=== PATIENT | male | born 1960 | race Caucasian/White ===

== ENCOUNTER 2019-11-20 10:36 | Emergency (ER) | payer MEDICARE, OTHER, SELFPAY ==
[2019-11-20] VITALS (32 sets, daily range): BP systolic 101–136; BP diastolic 60–95; PULSE 68–91; RESP 14–25; TEMP 36.7; O2SAT 98–100
--- NOTE | ~2019-11-20 | XR_ITS ---
XR chest 2V DATE: 11/20/2019 11:32 INDICATION: Left-sided chest pain TECHNIQUE: PA and lateral views COMPARISON: 05/02/2019 2 view chest FINDINGS: Normal heart size. No hilar or mediastinal enlargement. The lungs are moderately hyperinfla michael but clear of infiltrate or consolidation. There is chronic blunting of the left costophrenic angl e. No pleural effusion or pulmonary vascular congestion or pneumothorax is detected. Surgical clips overlie the right upper quadrant, consistent with cholecystectomy. Degenerative changes of the thoracic spine. IMPRESSION: No active cardiopulmonary disease or significant change compared to 05/02/2019 Reviewed, dictated and finalized at location A.
--- NOTE | 2019-11-20 10:59 | ECG_ITS ---
Measurements Intervals [place] Rate: 75 P: 68 [place]: 147 QRS: 42 QRSD: 98 T: 58 QT: 358 QTc: 401 Interpretive Statements SINUS RHYTHM INCOMPLETE RIGHT BUNDLE BRANCH BLOCK BASELINE ARTIFACT- III, AVL, V1 BORDERLINE ECG Electronically Signed On 11-20-2019 11:24:54 CDT by Mikie Culp D.O.
[2019-11-20 11:13] LABS: Basophils Absolute Auto 0.1 K/mm3 (0.0-0.1); Basophils Percent Auto 0.7 % (0.2-1.2); Eosinophils Absolute Auto 0.2 K/mm3 (0-0.3); Eosinophils Percent Auto 2.2 % (0-4.4); Hematocrit 45.6 % (42.0-52.0); Hemoglobin 15.6 g/dL (14.0-18.0); Immature Granulocyte Absolute 0.07 K/mm3 (0.00-0.031); Immature Granulocyte Percent A 0.7 % (0-0.5); Lymphocytes Absolute Auto 1.65 K/mm3 (0.9-3.2); Lymphocytes Percent Auto 16.7 % (18.3-44.2); Mean Corpuscular HGB Conc 34.2 g/dl (32-36); Mean Corpuscular Hemoglobin 33.1 pg (26-34); Mean Corpuscular Volume 96.6 fl (80-100); Mean Platelet Volume 9.5 fl (7.4-10.4); Monocytes Absolute Auto 0.8 K/mm3 (0.1-0.6); Monocytes Percent Auto 7.6 % (2.6-8.5); Neutrophils Absolute Auto 7.1 K/mm3 (1.3-6.7); Neutrophils Percent Auto 72.1 % (45.5-73.1); Platelet Count Result 329 k/mm3 (150-375); Red Blood Count 4.72 M/mm3 (4.6-6.20); Red Cell Distribution Width 13.4 % (11.5-14.5); White Blood Count 9.9 K/mm3 (4.5-10.0)
[2019-11-20 11:23] LABS: INR 1.1; Prothrombin Time 14.2 Seconds (11.1-14.7)
--- NOTE | 2019-11-20 11:23 | ED.CHESTPAIN ---
HPI - Chest Pain General Chief Complaint: Chest Pain Stated Complaint: CHEST PAIN, SOB Time Seen by Provider: 11/20/19 11:08 Source: patient Mode of arrival: ambulatory Limitations: no limitations History of Present Illness HPI narrative: This is a 59 year old male that presents to the ER for left sided chest pain since this morning. Reports he has been having some intermittent left-sided burning chest pain over the last couple of weeks. Reports he was diagnosed with pleurisy and has finished antibiotics and a steroid taper for this. Reports this morning he had some sharp left-sided chest pain which prompted him to be seen. The pain has now resolved. Denies fever, cough, shortness of breath, abdominal pain or vomiting. Related Data Home Medications Medication Instructions Recorded Confirmed famotidine 20 mg tablet 40 mg PO BID tablet 04/29/19 04/29/19 ijvlwh-[id number]-[id number] 1 cap PO QID 04/29/19 04/29/19 12,000-38,000-60,000 unit capsule,delayed rel rizatriptan 10 mg tablet See Rx Instructions PO .COMPLEX 04/29/19 04/29/19 Allergies Allergy/AdvReac Type Severity Reaction Status Date / Time hydromorphone Allergy Unknown unknown Verified 07/28/19 12:18 ketamine Allergy Unknown Other Verified 07/28/19 12:18 latex Allergy Unknown unknown Verified 11/01/19 09:02 morphine Allergy Unknown unknown Verified 07/28/19 12:18 hydrocodone Allergy Unknown Verified 11/20/19 10:47 Review of Systems Review of Systems: Narrative: CONSTITUTIONAL: Denies fever CARDIOVASCULAR: Reports chest pain. Denies palpitations, or edema. RESPIRATORY: Denies cough or dyspnea. GASTROINTESTINAL: Denies abdominal pain, nausea, vomiting All systems reviewed & are unremarkable except as noted in HPI and below PMFSH Social History Social History Smoking status: Heavy tobacco smoker Second hand tobacco smoke exposure: Yes Alcohol intake: current Gender identity (if verbalized by the patient): Male Exam Narrative: Exam Narrative: GENERAL: Well-appearing, well-nourished, and in no acute distress. HEAD: Normocephalic, atraumatic. EYES: EOMI. NECK: Supple. No adenopathy or masses. No carotid bruits or JVD CHEST: Clear to auscultation. No respiratory distress. No wheezes rales or rhonchi HEART: Regular rate and rhythm. No murmur heard. Normal peripheral pulses. ABDOMEN: Soft, nontender, nondistended, normal active bowel sounds. EXTREMITIES: Normal range of motion. No edema. SKIN: Warm, dry, no rash. NEURO: No focal deficits. Alert and oriented x3. PSYCH: Normal mood and affect Course Vital Signs Vital signs: Vital Signs Pulse Rate 87 11/20/19 10:41 Respiratory Rate 22 H 11/20/19 10:41 Temperature 98.1 F 11/20/19 10:43 Pulse Rate 80 11/20/19 13:16 Respiratory Rate 16 11/20/19 13:16 Blood Pressure 121/68 11/20/19 14:46 Pulse Oximetry 100 11/20/19 14:46 MDM - Chest Pain MDM Narrative Medical decision making narrative: Patient presents to the emergency department for left-sided chest pain which occurred this morning. Patient is afebrile and nontoxic-appearing. CBC and metabolic panel are without acute changes. BNP is not elevated. D-dimer is not elevated. Baseline and 3-hour troponin are negative. No concerning changes on EKG. Chest x-ray is normal. Patient has remained chest pain-free while in the ED. Heart score is 2. Patient is stable and felt appropriate for further outpatient evaluation. He is to follow-up with his primary care doctor. He was given warnings to return to the ER Lab Data Attestation: I reviewed the patient's lab results. Result diagrams: 11/20/19 11:05 11/20/19 11:05 Labs: Lab Results 11/20/19 11/20/19 11/20/19 Range/Units 11:04 11:05 11:05 WBC 9.9 (4.5-10.0) K/mm3 RBC 4.72 (4.6-6.20) M/mm3 Hgb 15.6 (14.0-18.0) g/dL Hct 45.6 (42.0-52.0) % MCV 96.6 (80-100) fl [facility]
[2019-11-20 11:24] LABS: Partial Thromboplastin Time 26.5 SECONDS (22.3-36.8)
[2019-11-20 11:26] LABS: Blood Urea Nitrogen 12 mg/dL (9-20); Calcium 9.3 mg/dL (8.4-10.2); Carbon Dioxide 30 mmol/L (22-30); Chloride 101 mmol/L (98-107); Estimated CRCL calculation 70 ml/min; Estimated Glomerular Filt Rate > 60; Glucose 111 mg/dL (75-110); Potassium 3.5 mmol/L (3.4-5.0); Sodium 136 mmol/L (137-145)
[2019-11-20 11:38] LABS: Troponin I < 0.012 ng/mL (0.000-0.034)
[2019-11-20 11:44] LABS: D Dimer 0.32 ug/mL (<0.48)
[2019-11-20 11:47] LABS: NT Pro B Type Natriuretic Pept 34 PG/ML (5-100)
[2019-11-20 14:35] LABS: Troponin I < 0.012 ng/mL (0.000-0.034)
== END 2019-11-20 15:23 | disposition home or self-care (01) ==
PROVIDERS: Physician Assistant; Emergency Provider Emergency Medicine; PCP Family Medicine
DX: R07.9 Chest pain, unspecified (principal); F17.200 Nicotine dependence, unspecified, uncomplicated; I45.10 Unspecified right bundle-branch block
CPT/HCPCS: 36415; 71046; 80048; 83880; 84484; 85025; 85380; 85610; 85730; 93005; 99284

== ENCOUNTER 2020-01-09 09:07 | Outpatient (CLI) | payer MEDICARE, OTHER, SELFPAY ==
[2020-01-09 09:33] LABS: Hematocrit 44.7 % (42.0-52.0); Hemoglobin 15.5 g/dL (14.0-18.0); Mean Corpuscular HGB Conc 34.7 g/dl (32-36); Mean Corpuscular Volume 95.3 fl (80-100); Mean Platelet Volume 9.5 fl (7.4-10.4); Platelet Count Result 309 k/mm3 (150-375); Red Blood Count 4.69 M/mm3 (4.6-6.20); Red Cell Distribution Width 13.1 % (11.5-14.5); White Blood Count 7.1 K/mm3 (4.5-10.0)
[2020-01-09 09:41] LABS: Alanine Aminotransferase 17 U/L (4-50); Albumin Level 4.3 g/dL (3.5-5.1); Alkaline Phosphatase 86 U/L (38-126); Anion Gap 9.2 mmol/L (7-16); Aspartate Amino Transferase 22 U/L (17-59); Bilirubin,Total 0.5 mg/dL (0.2-1.3); Blood Urea Nitrogen 18 mg/dL (9-20); Calcium 9.3 mg/dL (8.4-10.2); Carbon Dioxide 28 mmol/L (22-30); Chloride 103 mmol/L (98-107); Cholesterol 194 mg/dL (0-200); Estimated Glomerular Filt Rate > 60; Glucose 102 mg/dL (75-110); HDL Direct 47 mg/dL; Potassium 4.2 mmol/L (3.4-5.0); Sodium 136 mmol/L (137-145); Triglycerides 70 mg/dL (<150)
[2020-01-09 09:51] LABS: LDL Cholesterol Direct 130 mg/dL
[2020-01-09 12:42] LABS: Prostate Specific Antigen 3.9 ng/mL (< OR = 4.0)
== END 2020-01-09 09:08 | disposition home or self-care (01) ==
LOC: ANHLAB 09:10
PROVIDERS: PCP Family Medicine; Visit Provider Family Medicine
DX: E78.2 Mixed hyperlipidemia (principal); R10.9 Unspecified abdominal pain; R53.83 Other fatigue; Z12.5 Encounter for screening for malignant neoplasm of prostate
CPT/HCPCS: 36415; 80053; 80061; 84153; 84443; 85027; G0103

== ENCOUNTER 2020-07-17 08:16 | Outpatient (CLI) | payer MEDICARE, OTHER, SELFPAY ==
[2020-07-17 08:53] LABS: Hematocrit 44.8 % (42.0-52.0); Hemoglobin 15.3 g/dL (14.0-18.0); Mean Corpuscular HGB Conc 34.2 g/dl (32-36); Mean Corpuscular Hemoglobin 32.7 pg (26-34); Mean Corpuscular Volume 95.7 fl (80-100); Mean Platelet Volume 9.4 fl (7.4-10.4); Platelet Count Result 363 k/mm3 (150-375); Red Blood Count 4.68 M/mm3 (4.6-6.20); Red Cell Distribution Width 13.4 % (11.5-14.5); White Blood Count 9.4 K/mm3 (4.5-10.0)
[2020-07-17 10:48] LABS: Vitamin D 25 Hydroxy 51.5 ng/mL
[2020-07-17 12:07] LABS: Alanine Aminotransferase 14 U/L (4-50); Albumin Level 3.9 g/dL (3.5-5.1); Alkaline Phosphatase 96 U/L (38-126); Anion Gap 5 mmol/L (8-16); Aspartate Amino Transferase 22 U/L (17-59); Bilirubin,Total 0.5 mg/dL (0.2-1.3); Blood Urea Nitrogen 16 mg/dL (9-20); Calcium 9.6 mg/dL (8.4-10.2); Carbon Dioxide 28 mmol/L (22-30); Chloride 106 mmol/L (98-107); Cholesterol 180 mg/dL (0-200); Estimated Glomerular Filt Rate > 60; Glucose 91 mg/dL (75-110); Lipase 57 U/L (23-300); Potassium 4.8 mmol/L (3.4-5.0); Sodium 139 mmol/L (137-145)
[2020-07-17 12:55] LABS: Iron 108 ug/dL (49-181)
[2020-07-17 12:58] LABS: Vitamin B12 > 1000.0 pg/mL (239-931)
[2020-07-17 13:04] LABS: Percent Iron Saturation 34 % (20-50)
== END 2020-07-17 08:17 | disposition home or self-care (01) ==
PROVIDERS: PCP Family Medicine; Visit Provider Family Medicine
DX: R53.83 Other fatigue (principal); E55.9 Vitamin D deficiency, unspecified; K25.9 Gastric ulcer, unspecified as acute or chronic, without hemorrhage or perforation; E78.2 Mixed hyperlipidemia; E53.9 Vitamin B deficiency, unspecified; G89.29 Other chronic pain; R10.9 Unspecified abdominal pain; K86.1 Other chronic pancreatitis
CPT/HCPCS: 36415; 80053; 82306; 82465; 82607; 83540; 83550; 83690; 84443; 85027

== ENCOUNTER → 2020-10-19 06:33 | Outpatient (CLI) | payer MEDICARE, OTHER, SELFPAY ==
[2020-10-19 18:42] LABS: SARS-CoV-2 RNA PCR Negative
== END ==
PROVIDERS: PCP Family Medicine; Visit Provider Physician Assistant
DX: Z20.822 Contact with and (suspected) exposure to COVID-19 (principal); R05 Cough
CPT/HCPCS: C9803; U0003; U0005

== ENCOUNTER 2021-02-06 07:11 | Outpatient (CLI) | payer MEDICARE, OTHER, SELFPAY ==
[2021-02-06 07:57] LABS: Hematocrit 44.7 % (42.0-52.0); Mean Corpuscular HGB Conc 33.6 g/dl (32-36); Mean Corpuscular Hemoglobin 32.5 pg (26-34); Mean Platelet Volume 9.3 fl (7.4-10.4); Platelet Count Result 351 k/mm3 (150-375); Red Blood Count 4.61 M/mm3 (4.6-6.20); Red Cell Distribution Width 13.4 % (11.5-14.5); White Blood Count 8.4 K/mm3 (4.5-10.0)
[2021-02-06 08:27] LABS: Alanine Aminotransferase 20 U/L (4-50); Albumin Level 4.3 g/dL (3.5-5.1); Alkaline Phosphatase 93 U/L (38-126); Anion Gap 3 mmol/L (8-16); Aspartate Amino Transferase 27 U/L (17-59); Bilirubin,Total 0.5 mg/dL (0.2-1.3); Blood Urea Nitrogen 16 mg/dL (9-20); Calcium 9.5 mg/dL (8.4-10.2); Carbon Dioxide 30 mmol/L (22-30); Chloride 106 mmol/L (98-107); Cholesterol 221 mg/dL (0-200); Estimated Glomerular Filt Rate > 60; Glucose 103 mg/dL (65-110); HDL Direct 49 mg/dL; Lipase 75 U/L (23-300); Sodium 139 mmol/L (137-145); Triglycerides 110 mg/dL (<150)
[2021-02-06 08:39] LABS: Potassium 4.3 mmol/L (3.4-5.0)
[2021-02-06 08:40] LABS: LDL Cholesterol Direct 125 mg/dL
[2021-02-06 08:47] LABS: Prostate Specific Antigen 2.4 ng/mL (< OR = 4.0)
== END 2021-02-06 07:12 | disposition home or self-care (01) ==
PROVIDERS: PCP Family Medicine; Visit Provider Family Medicine
DX: E78.2 Mixed hyperlipidemia (principal); R10.13 Epigastric pain; K86.1 Other chronic pancreatitis; Z12.5 Encounter for screening for malignant neoplasm of prostate; R53.83 Other fatigue; E53.9 Vitamin B deficiency, unspecified; E55.9 Vitamin D deficiency, unspecified
CPT/HCPCS: 36415; 80053; 80061; 82306; 82607; 83690; 84153; 84443; 85027; G0103

== ENCOUNTER 2021-02-19 14:24 | Outpatient (CLI) | payer MEDICARE, OTHER, SELFPAY ==
--- NOTE | 2021-02-19 14:34 | ECG_ITS ---
Measurements Intervals [place] Rate: 93 P: 70 [place]: 161 QRS: 48 QRSD: 99 T: 67 QT: 337 QTc: 419 Interpretive Statements SINUS RHYTHM INCOMPLETE RIGHT BUNDLE BRANCH BLOCK BORDERLINE ECG Electronically Signed On 02-19-2021 14:56:35 CDT by Mikie Culp D.O.
== END 2021-02-19 14:25 | disposition home or self-care (01) ==
PROVIDERS: PCP Family Medicine; Visit Provider Family Medicine
DX: Z01.810 Encounter for preprocedural cardiovascular examination (principal); E78.5 Hyperlipidemia, unspecified; I45.10 Unspecified right bundle-branch block
CPT/HCPCS: 93005

== ENCOUNTER 2021-10-21 07:33 | Outpatient (CLI) | payer MEDICARE, SELFPAY ==
[2021-10-21 07:56] LABS: Hematocrit 43.1 % (42.0-52.0); Hemoglobin 14.3 g/dL (14.0-18.0); Mean Corpuscular HGB Conc 33.2 g/dl (32-36); Mean Corpuscular Hemoglobin 32.7 pg (26-34); Mean Corpuscular Volume 98.6 fl (80-100); Mean Platelet Volume 9.3 fl (7.4-10.4); Platelet Count Result 337 k/mm3 (150-375); Red Blood Count 4.37 M/mm3 (4.6-6.20); Red Cell Distribution Width 14.2 % (11.5-14.5); White Blood Count 9.5 K/mm3 (4.5-10.0)
[2021-10-21 08:08] LABS: Alanine Aminotransferase 17 U/L (6-50); Albumin Level 4.1 g/dL (3.5-5.1); Alkaline Phosphatase 86 U/L (38-126); Anion Gap 4 mmol/L (8-16); Aspartate Amino Transferase 28 U/L (17-59); Bilirubin,Total 0.4 mg/dL (0.2-1.3); Blood Urea Nitrogen 14 mg/dL (9-20); Calcium 8.9 mg/dL (8.4-10.2); Carbon Dioxide 29 mmol/L (22-30); Chloride 105 mmol/L (98-107); Cholesterol 205 mg/dL (0-200); Estimated Glomerular Filt Rate > 60; Glucose 103 mg/dL (65-110); HDL Direct 46 mg/dL; Potassium 4.3 mmol/L (3.4-5.0); Sodium 138 mmol/L (137-145); Triglycerides 98 mg/dL (<150)
[2021-10-21 08:19] LABS: LDL Cholesterol Direct 119 mg/dL
[2021-10-21 09:01] LABS: Vitamin D 25 Hydroxy 71.4 ng/mL
== END 2021-10-21 07:34 | disposition home or self-care (01) ==
LOC: ANHLAB 07:38
PROVIDERS: PCP Family Medicine; Visit Provider Family Medicine
DX: E78.2 Mixed hyperlipidemia (principal); R53.83 Other fatigue; E53.9 Vitamin B deficiency, unspecified; E55.9 Vitamin D deficiency, unspecified
CPT/HCPCS: 36415; 80053; 80061; 82306; 82607; 84443; 85027

== ENCOUNTER 2022-04-11 07:19 | Outpatient (CLI) | payer MEDICARE, SELFPAY ==
[2022-04-11 07:58] LABS: Basophils Absolute Auto 0.1 K/mm3 (0.0-0.1); Basophils Percent Auto 1.4 % (0.2-1.2); Eosinophils Absolute Auto 0.4 K/mm3 (0-0.3); Eosinophils Percent Auto 5.7 % (0-4.4); Hematocrit 46.4 % (42.0-52.0); Hemoglobin 15.4 g/dL (14.0-18.0); Immature Granulocyte Absolute 0.03 K/mm3 (0.00-0.031); Immature Granulocyte Percent A 0.4 % (0-0.5); Lymphocytes Absolute Auto 1.88 K/mm3 (0.9-3.2); Lymphocytes Percent Auto 24.8 % (18.3-44.2); Mean Corpuscular HGB Conc 33.2 g/dl (32-36); Mean Corpuscular Hemoglobin 33.5 pg (26-34); Mean Corpuscular Volume 100.9 fl (80-100); Mean Platelet Volume 9.4 fl (7.4-10.4); Monocytes Absolute Auto 0.7 K/mm3 (0.1-0.6); Monocytes Percent Auto 9.1 % (2.6-8.5); Neutrophils Absolute Auto 4.5 K/mm3 (1.3-6.7); Neutrophils Percent Auto 58.6 % (45.5-73.1); Platelet Count Result 345 k/mm3 (150-375); Red Cell Distribution Width 13.2 % (11.5-14.5); White Blood Count 7.6 K/mm3 (4.5-10.0)
[2022-04-11 08:10] LABS: Alanine Aminotransferase 17 U/L (6-50); Albumin Level 4.6 g/dL (3.5-5.1); Alkaline Phosphatase 88 U/L (38-126); Anion Gap 7 mmol/L (8-16); Aspartate Amino Transferase 22 U/L (17-59); Bilirubin,Total 0.5 mg/dL (0.2-1.3); Blood Urea Nitrogen 18 mg/dL (9-20); Calcium 9.3 mg/dL (8.4-10.2); Carbon Dioxide 29 mmol/L (22-30); Chloride 104 mmol/L (98-107); Cholesterol 229 mg/dL (0-200); Estimated Glomerular Filt Rate > 60; Glucose 100 mg/dL (65-110); HDL Direct 47 mg/dL; Lipase 72 U/L (23-300); Potassium 4.4 mmol/L (3.4-5.0); Sodium 140 mmol/L (137-145); Triglycerides 141 mg/dL (<150)
[2022-04-11 08:21] LABS: LDL Cholesterol Direct 148 mg/dL
[2022-04-11 16:16] LABS: Vitamin D 25 Hydroxy 46.7 ng/mL
== END 2022-04-11 07:20 | disposition home or self-care (01) ==
LOC: ANHLAB 07:21
PROVIDERS: PCP Family Medicine; Visit Provider Family Medicine
DX: R10.13 Epigastric pain (principal); E78.2 Mixed hyperlipidemia; R53.83 Other fatigue; E55.9 Vitamin D deficiency, unspecified; E53.9 Vitamin B deficiency, unspecified
CPT/HCPCS: 36415; 80053; 80061; 82306; 82607; 83690; 84443; 85025

== ENCOUNTER 2022-09-04 07:05 | Outpatient (CLI) | payer MEDICARE, SELFPAY ==
[2022-09-04 07:35] LABS: Basophils Absolute Auto 0.2 K/mm3 (0.0-0.1); Basophils Percent Auto 1.3 % (0.2-1.2); Eosinophils Absolute Auto 0.7 K/mm3 (0-0.3); Eosinophils Percent Auto 6.4 % (0-4.4); Hematocrit 45.7 % (42.0-52.0); Hemoglobin 15.4 g/dL (14.0-18.0); Immature Granulocyte Absolute 0.05 K/mm3 (0.00-0.031); Immature Granulocyte Percent A 0.4 % (0-0.5); Lymphocytes Absolute Auto 1.98 K/mm3 (0.9-3.2); Lymphocytes Percent Auto 17.5 % (18.3-44.2); Mean Corpuscular HGB Conc 33.7 g/dl (32-36); Mean Corpuscular Hemoglobin 32.9 pg (26-34); Mean Corpuscular Volume 97.6 fl (80-100); Mean Platelet Volume 9.2 fl (7.4-10.4); Monocytes Percent Auto 8.8 % (2.6-8.5); Neutrophils Absolute Auto 7.4 K/mm3 (1.3-6.7); Neutrophils Percent Auto 65.6 % (45.5-73.1); Platelet Count Result 366 k/mm3 (150-375); Red Blood Count 4.68 M/mm3 (4.6-6.20); Red Cell Distribution Width 13.1 % (11.5-14.5); White Blood Count 11.3 K/mm3 (4.5-10.0)
[2022-09-04 07:50] LABS: Alanine Aminotransferase 14 U/L (6-50); Albumin Level 4.3 g/dL (3.5-5.1); Alkaline Phosphatase 97 U/L (38-126); Anion Gap 5 mmol/L (8-16); Aspartate Amino Transferase 19 U/L (17-59); Bilirubin,Total 0.5 mg/dL (0.2-1.3); Blood Urea Nitrogen 16 mg/dL (9-20); Calcium 9.1 mg/dL (8.4-10.2); Carbon Dioxide 31 mmol/L (22-30); Chloride 104 mmol/L (98-107); Cholesterol 224 mg/dL (0-200); Estimated Glomerular Filt Rate > 60; Glucose 104 mg/dL (65-110); HDL Direct 38 mg/dL; Potassium 4.1 mmol/L (3.4-5.0); Sodium 140 mmol/L (137-145); Triglycerides 177 mg/dL (<150)
[2022-09-04 07:56] LABS: Rheumatoid Factor < 8.6 IU/ML (<12)
[2022-09-04 08:01] LABS: LDL Cholesterol Direct 145 mg/dL
[2022-09-04 08:05] LABS: Vitamin D 25 Hydroxy 32.8 ng/mL
[2022-09-04 08:19] LABS: Erythrocyte Sedimentation Rate 14 mm/hr (0-20)
[2022-09-04 08:20] LABS: Prostate Specific Antigen < 0.1 ng/mL (< OR = 4.0)
[2022-09-04 08:55] LABS: Folic Acid 7.5 ng/mL (2.76->20)
[2022-09-08 12:07] LABS: Anti Cyclic Citrullinated Pept <16 Units (<20)
== END 2022-09-04 07:06 | disposition home or self-care (01) ==
PROVIDERS: PCP Family Medicine; Visit Provider Family Medicine
DX: M25.50 Pain in unspecified joint (principal); R53.83 Other fatigue; E78.5 Hyperlipidemia, unspecified; G89.29 Other chronic pain; D75.89 Other specified diseases of blood and blood-forming organs; E78.2 Mixed hyperlipidemia; E55.9 Vitamin D deficiency, unspecified; Z12.5 Encounter for screening for malignant neoplasm of prostate
CPT/HCPCS: 36415; 80053; 80061; 82306; 82607; 82746; 84153; 84443; 85025; 85652; 86038; 86200; 86430

== ENCOUNTER 2022-09-12 07:46 | Outpatient (CLI) | payer MEDICARE, SELFPAY ==
--- NOTE | ~2022-09-12 | MR_ITS ---
MRI of the brain Clinical History: Headache Technique: Axial and sagittal T1-weighted images were acquired. These were followed by axial T2-weigh michael, diffusion weighted, gradient, and FLAIR images. Thin cut coronal T1-weighted and T2-weighted, an d thin cut axial T1-weighted images were performed through the internal auditory canals. Following in travenous administration of 30 cc MultiHance gadolinium, T1-weighted fat-sat imaging was performed th rough the brain in the axial and coronal planes. Thin cut coronal and axial T1-weighted postcontrast imaging was also performed through the internal auditory canals. Findings: No acute infarct, internal hemorrhage, or mass lesion seen. There are mild chronic white ma tter changes in the periventricular white matter bilaterally and in the [place]. Ventricles and subarachnoid spaces are unremarkable. Orbits are unremarkable. Paranasal sinuses and m astoid air cells are clear. Major intracranial flow voids appear intact. Sagittal midline structures are intact. No abnormal mass lesion identified at the CP angle regions or internal auditory canals. No abnormal p ostcontrast enhancement identified. IMPRESSION: Mild chronic white matter changes, otherwise unremarkable exam. No abnormality of the internal auditory canals or CP angle regions identified. Reviewed, dictated and finalized at location M.
== END 2022-09-12 07:47 | disposition home or self-care (01) ==
LOC: ANHIMG 07:48
PROVIDERS: PCP Family Medicine; Visit Provider Family Medicine
DX: R51.9 Headache, unspecified (principal); R93.0 Abnormal findings on diagnostic imaging of skull and head, not elsewhere classified
CPT/HCPCS: 70553; A9577

== ENCOUNTER 2023-03-24 07:27 | Outpatient (CLI) | payer MEDICARE, SELFPAY ==
[2023-03-24 08:00] LABS: Basophils Absolute Auto 0.1 K/mm3 (0.0-0.1); Eosinophils Absolute Auto 0.4 K/mm3 (0-0.3); Hemoglobin 15.3 g/dL (14.0-18.0); Immature Granulocyte Absolute 0.04 K/mm3 (0.00-0.031); Immature Granulocyte Percent A 0.4 % (0-0.5); Lymphocytes Absolute Auto 2.24 K/mm3 (0.9-3.2); Mean Corpuscular Hemoglobin 33.4 pg (26-34); Mean Corpuscular Volume 98.3 fl (80-100); Mean Platelet Volume 9.5 fl (7.4-10.4); Monocytes Absolute Auto 0.9 K/mm3 (0.1-0.6); Monocytes Percent Auto 8.1 % (2.6-8.5); Neutrophils Percent Auto 65.5 % (45.5-73.1); Platelet Count Result 384 k/mm3 (150-375); Red Blood Count 4.58 M/mm3 (4.6-6.20); Red Cell Distribution Width 13.1 % (11.5-14.5); White Blood Count 10.7 K/mm3 (4.5-10.0)
[2023-03-24 08:13] LABS: Alanine Aminotransferase 19 U/L (6-50); Albumin Level 4.5 g/dL (3.5-5.1); Alkaline Phosphatase 99 U/L (38-126); Anion Gap 0 mmol/L (8-16); Aspartate Amino Transferase 25 U/L (17-59); Bilirubin,Total 0.6 mg/dL (0.2-1.3); Blood Urea Nitrogen 19 mg/dL (9-20); Calcium 9.6 mg/dL (8.4-10.2); Carbon Dioxide 33 mmol/L (22-30); Chloride 104 mmol/L (98-107); Cholesterol 227 mg/dL (0-200); Estimated Glomerular Filt Rate > 60; Glucose 101 mg/dL (65-110); HDL Direct 50 mg/dL; Potassium 4.7 mmol/L (3.4-5.0); Sodium 137 mmol/L (137-145); Triglycerides 114 mg/dL (<150)
[2023-03-24 08:21] LABS: LDL Cholesterol Direct 145 mg/dL
[2023-03-24 08:28] LABS: Iron 79 ug/dL (49-181)
[2023-03-24 08:38] LABS: Percent Iron Saturation 26 % (20-50)
[2023-03-24 08:41] LABS: Vitamin D 25 Hydroxy 25.1 ng/mL
[2023-03-24 09:00] LABS: Thyroid Stimulating Hormone Reflex 0.775 uIU/mL (0.465-4.68)
== END 2023-03-24 07:28 | disposition home or self-care (01) ==
LOC: ANHLAB 07:28
PROVIDERS: PCP Family Medicine; Visit Provider Family Medicine
DX: D72.829 Elevated white blood cell count, unspecified (principal); E55.9 Vitamin D deficiency, unspecified; R53.83 Other fatigue; R10.13 Epigastric pain; E53.8 Deficiency of other specified B group vitamins; E61.1 Iron deficiency; E78.2 Mixed hyperlipidemia
CPT/HCPCS: 36415; 80053; 80061; 82306; 82607; 83540; 83550; 84443; 85025

== ENCOUNTER 2023-04-22 09:52 | Outpatient (CLI) | payer MEDICARE, SELFPAY ==
--- NOTE | 2023-04-22 11:00 | NEURO_ITS ---
Impression: # Complains of right hand weakness. History of movement disorder with question regarding Huntingtonsdisease. 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 # No Carpal Tunnel Syndrome. # Needle/EMG exam mildly neurogenic in right 1st DI and ADM. Nerve Conduction Studies Anti Sensory Summary Table Stim Site NR Peak (ms) P-T Amp (?V) Site1 Site2 Delta-P (ms) Dist (cm) Octavio (m/s) Right Median Anti Sensory (2-3nd Digit) Wrist 3.5 57.6 Wrist 2-3nd Digit 3.5 14.0 40 Wrist 3.6 57.7 Wrist 2-3nd Digit 3.5 14.0 40 Right Radial Anti Sensory (Base 1st Digit) Wrist 2.1 21.8 Wrist Base 1st Digit 2.1 0.0 Right Ulnar Anti Sensory (5th Digit) Wrist 2.7 11.5 Wrist 5th Digit 2.7 14.0 52 Motor Summary Table Stim Site NR Onset (ms) O-P Amp (mV) Site1 Site2 Delta-0 (ms) Dist (cm) Octavio (m/s) Right Median Motor (Abd Poll Brev) Wrist 3.4 3.9 Elbow Wrist 4.8 29.0 60 Elbow 8.2 5.1 Right Ulnar Motor (Abd Dig Minimi) Wrist 3.0 6.6 A Elbow Wrist 6.5 29.0 45 A Elbow 9.5 4.6 B Elbow Wrist 3.3 20.0 61 B Elbow 6.3 6.0 F Wave Studies NR F-Lat (ms) L-R F-Lat (ms) Right Median (Mrkrs) (Abd Poll Brev) 27.59 Right Ulnar (Mrkrs) (Abd Dig Min) 29.25 EMG Side Muscle Nerve Root Ins Act Fibs Amp Dur Recrt Comment Right 1stDorInt Ulnar C8-T1 Nml Nml Nml >12ms Reduced Right Ext Indicis Radial (Post Int) C7-8 Nml Nml Nml Nml Nml Right Ext Digitorum Radial (Post Int) C7-8 Nml Nml Nml Nml Nml Right BrachioRad Radial C5-6 Nml Nml Nml Nml Nml Right PronatorTeres Median C6-7 Nml Nml Nml Nml Nml Right Abd Poll Brev Median C8-T1 Nml Nml Nml Nml Nml Right ABD Dig Min Ulnar C8-T1 Nml Nml Nml >12ms Reduced Right Biceps Musculocut C5-6 Nml Nml Nml Nml Nml Right Triceps Radial C6-7-8 Nml Nml Nml Nml Nml MTDD
== END 2023-04-22 09:53 | disposition home or self-care (01) ==
LOC: ANHNEURO 09:54
PROVIDERS: PCP Family Medicine; Visit Provider Family Medicine
DX: R20.2 Paresthesia of skin (principal); G56.21 Lesion of ulnar nerve, right upper limb
CPT/HCPCS: 95886; 95909

== ENCOUNTER 2023-06-25 07:24 | Outpatient (CLI) | payer MEDICARE, SELFPAY ==
[2023-06-25 07:43] LABS: Basophils Absolute Auto 0.1 K/mm3 (0.0-0.1); Basophils Percent Auto 0.9 % (0.2-1.2); Eosinophils Absolute Auto 0.5 K/mm3 (0-0.3); Eosinophils Percent Auto 5.9 % (0-4.4); Hematocrit 42.8 % (42.0-52.0); Hemoglobin 14.5 g/dL (14.0-18.0); Immature Granulocyte Absolute 0.03 K/mm3 (0.00-0.031); Immature Granulocyte Percent A 0.4 % (0-0.5); Lymphocytes Absolute Auto 2.57 K/mm3 (0.9-3.2); Lymphocytes Percent Auto 32.1 % (18.3-44.2); Mean Corpuscular HGB Conc 33.9 g/dl (32-36); Mean Corpuscular Hemoglobin 31.6 pg (26-34); Mean Corpuscular Volume 93.2 fl (80-100); Mean Platelet Volume 8.7 fl (7.4-10.4); Monocytes Absolute Auto 0.7 K/mm3 (0.1-0.6); Monocytes Percent Auto 8.1 % (2.6-8.5); Neutrophils Absolute Auto 4.2 K/mm3 (1.3-6.7); Neutrophils Percent Auto 52.6 % (45.5-73.1); Platelet Count Result 318 k/mm3 (150-375); Red Blood Count 4.59 M/mm3 (4.6-6.20)
[2023-06-25 08:08] LABS: Anion Gap 6 mmol/L (8-16); Blood Urea Nitrogen 15 mg/dL (9-20); Calcium 9.3 mg/dL (8.4-10.2); Carbon Dioxide 30 mmol/L (22-30); Chloride 104 mmol/L (98-107); Estimated Glomerular Filt Rate > 60; Glucose 97 mg/dL (65-110); Potassium 3.9 mmol/L (3.4-5.0); Sodium 140 mmol/L (137-145)
[2023-07-01 16:18] LABS: PRA 7.37 ng/mL/h (0.25-5.82)
== END 2023-06-25 07:25 | disposition home or self-care (01) ==
LOC: ANHLAB 07:28
PROVIDERS: PCP Family Medicine; Visit Provider Family Medicine
DX: I10 Essential (primary) hypertension (principal); D72.829 Elevated white blood cell count, unspecified
CPT/HCPCS: 36415; 80048; 82088; 82384; 84244; 85025

== ENCOUNTER 2023-07-10 10:48 | Outpatient (CLI) | payer MEDICARE, SELFPAY ==
--- NOTE | 2023-07-10 11:01 | ECG_ITS ---
Measurements Intervals [place] Rate: 93 P: 61 [place]: 165 QRS: 16 QRSD: 106 T: 64 QT: 349 QTc: 435 Interpretive Statements SINUS RHYTHM INCOMPLETE RIGHT BUNDLE BRANCH BLOCK BORDERLINE ECG COMPARED TO ECG 02/19/2021 14:41:00 NO SIGNIFICANT CHANGES Electronically Signed On 07-10-2023 11:59:45 B[employer]ER by Mikie Culp D.O.
== END 2023-07-10 10:49 | disposition home or self-care (01) ==
PROVIDERS: PCP Family Medicine; Visit Provider Student in an Organized Health Care Education/Training Program
DX: I10 Essential (primary) hypertension (principal); Z01.818 Encounter for other preprocedural examination; I45.10 Unspecified right bundle-branch block
CPT/HCPCS: 93005

== ENCOUNTER 2023-07-16 05:48 | Day surgery (SDC) | payer MEDICARE, SELFPAY ==
--- NOTE | 2023-07-15 10:42 | WPDANESEPPF ---
Anes - Initial Pre Proc Eval Procedure: Operation Date: 07/16/23 07:30 Proposed Procedures p Right Endoscopic Carpal Tunnel Release, Possible Open Carpal Tunnel Release - Ailyn Patrick MD s Right Middle Finger A1 Gilda Release - MD coni Duke Right Cubital Tunnel Release - Ailyn Patrick MD Date/Time: 07/15/23 10:42 Surgeon: Ailyn Patrick MD Pre Op Diagnosis: Right Carpal Tunnel Syndrome, Ulnar Neuropathy Patient Data Age: 63 Gender: M Height: 1.73 m Weight: 71.668 kg Allergies Allergy/AdvReac Type Severity Reaction Status Date / Time hydromorphone Allergy Unknown unknown Verified 07/16/23 06:24 ketamine Allergy Unknown Hallucinati Verified 07/16/23 06:24 ng morphine Allergy Unknown unknown Verified 07/16/23 06:24 adhesive tape Allergy Blister Verified 07/16/23 06:24 hydrocodone Allergy Unknown Verified 07/16/23 06:24 Home Medications Medication Instructions Recorded Confirmed Type clobetasol 0.05 % topical cream 1 applic topical DAILY #60 grams 04/29/19 07/16/23 Rx famotidine 20 mg tablet 40 mg PO BID 04/29/19 07/16/23 History nvsyhr-vnxwycrz-bitfcia 1 cap PO QID 04/29/19 07/16/23 History 12,000-38,000-60,000 unit capsule,delayed rel (Creon) omeprazole 10 mg capsule,delayed 10 mg PO BID 09/27/20 07/01/23 History release ergocalciferol (vitamin D2) 1,250 50,000 unit PO WEEKLY #12 caps 09/11/21 07/16/23 Rx mcg (50,000 unit) capsule rizatriptan 10 mg disintegrating See Rx Instructions PO .COMPLEX 08/18/22 07/16/23 Rx tablet #10 tabs meclizine 25 mg tablet 25 mg PO BID PRN dizziness #60 tabs 10/29/22 07/16/23 Rx amlodipine 10 mg tablet 10 mg PO DAILY 06/17/23 07/16/23 History nortriptyline 10 mg capsule 10 mg PO BID 06/17/23 07/16/23 History albuterol sulfate 0.63 mg/3 mL 0.63 mg (3 mL) inhalation Q4-6H 06/24/23 07/16/23 Rx solution for nebulization PRN shortness of breath or wheezing #75 mL hydrochlorothiazide 25 mg tablet 37.5 mg PO DAILY 07/06/23 07/16/23 History tizanidine 4 mg capsule 4 mg PO TID PRN muscle spasticity 07/14/23 07/16/23 Rx #60 caps tramadol 50 mg tablet 50 mg PO Q6H PRN pain #40 tabs 07/14/23 07/16/23 Rx Patient hx anesthesia problems: none Family hx anesthesia problems: none Results Review: All pre-operative results and documents have been reviewed as part of the pre-operative evaluation. [facility] Past Medical History Medical History (Updated 07/15/23 @ 10:42 by Cj Hi, ) Centrilobular emphysema Cervical radicular pain Chorea Chronic abdominal pain Chronic pancreatitis FH: CAD (coronary artery disease) Gastric ulcer, unspecified as acute or chronic, without hemorrhage or perforation History of COPD [place] disease Hyperlipidemia Lumbar radiculopathy Lumbar spondylosis Migraine without status migrainosus, not intractable Movement disorder Peripheral vascular disease Sleep apnea Tear of right biceps muscle surgical repair Mar 2020 Tobacco abuse Tremor Vitamin B deficiency, unspecified Vitamin D deficiency Surgical History Surgical History H/O elbow surgery H/O eye surgery History of carpal tunnel surgery History of gastric surgery Hx of appendectomy Hx of cholecystectomy Previous back surgery Family History Family History Mother Family history of hepatitis Family history of malignant neoplasm Grandparent Diabetes mellitus Social History Social History Smoking packs per day: 1 Smoking cigarettes per day: 20.0 Years smoked: 45 Smoking pack-years: 45.00 Smoking status: Current every day smoker Tobacco type: cigarettes Second hand tobacco smoke exposure: Yes Alcohol intake: current Alcohol use details: RARE Substance use: former Substance use type: does not use
[2023-07-16 06:32] VITALS: BP 139/84; PULSE 94; RESP 14; TEMP 37.3; O2SAT 99
[2023-07-16] MEDS: LACTATED RINGERS 1,000 ML 30 ML IV CONT (06:51)
--- NOTE | 2023-07-16 07:06 | WPDHPUPDATE1 ---
History and Physical Update Update Date/Time: 07/16/23 07:06 Patient seen and examined in pre-operative holding area. No interval change in medical history or symptoms. Patient recalls previous discussion of benefits and alternatives to procedure. Continues to desire to proceed with right endoscopic possible open carpal tunnel release, right cubital tunnel release and right middle finger a1 taylor release . Reviewed procedure, post-op expectations and risks including but not limited to bleeding, infection, injury to tendon/nerve/vessel, decreased hand function, stiffness, RSD, no change or worsening of symptoms. I discussed the possible use of assistants and their participation in the case. Patient stated understanding and signed the consent form wishing to proceed.
--- NOTE | 2023-07-16 07:07 | W.PM.PROC2 ---
Procedure Note - Detailed Date of Procedure 07/16/23 Pre-op Diagnosis Right Carpal Tunnel Syndrome, right cubital tunnel syndrome and right middle trigger finger Post-op Diagnosis Same Procedure Performed right endoscopic carpal tunnel right cubital tunnel releases and right middle finger a1 taylor release Surgeon Ailyn Patrick MD Friction Saw Operator Kanwal Hoskins PA-C Anesthesia MAC Description of Procedure INFORMED CONSENT:The patient was seen and examined and marked in the pre-op area.? The patient signed the consent form. PROCEDURE IN DETAIL: The patient taken back to OR on the stretcher in supine position. Time out performed with anesthesia, surgeon and staff agreeing on patient's name site and surgery to be performed SCDs were placed on the lower extremities and inflated A tourniquet was placed on {right} upper extremity and antibiotics given IV After anesthesia administered sedation I injected {10}cc 1%lido with epi and 0.5% marcaine plain at the operative site The?{right upper extremity}?was prepped and draped in sterile fashion the??{right upper extremity} was??exsanguinated with Esmarch bandage and tourniquet inflated to 250mmHg I made a transverse incision in the {right} volar distal wrist crease through skin and dermis with 15 blade scalpel.? Littler scissors spread down to antebrachial fascia. A small incision was made in antebrachial fascia allowing access to Carpal tunnel. I proceeded with sequential dilation staying in line with the ring finger and hugging the hook of the hamate.? I then used the synovial elevator to free any adhesions from the underside of the transverse carpal ligament. Next I was able to insert the Microaire endoscopic carpal tunnel device with direct visualization of the transverse fibers on the monitor and proceeded with complete segmental retrograde release of the ligament in its entirety.? I irrigated with normal saline and closed with 4-0 monocryl for dermis and subcuticular closure. I then made a longitudinal incision over the right middle finger a1 taylor through skin and dermis witha 15 blade scalpel. Littler scissors were used to spread down to the a1 taylor. I initially incised the a1 taylor with a 15 blade then used littler scissors to spread above and below proximally and distally aabove and below the taylor and then completed the transection. Ragnell retractors were used to withdraw the fds and fdp tendons for inspection. They were free of masses and synovitis and glidiing smoothly in the sheath. I irrigated with normal saline and closed with 4-0 chromic I next proceeded with making a longitudinal incision between two heads for flexor carpi ulnaris at end of {right} cubital tunnel with 15 blade scalpel.? Littler scissors were used to spread down to FCU fascia.? An incision was made in FCU fascia and ulnar nerve identified exiting cubital tunnel.? I proceeded with complete retrograde release of the cubital tunnel including 7cm proximal for the intermuscular septum.? The nerve appeared healthy with visible vaso nervorum.? There was no subluxation on full elbow range of motion. ? I irrigated with normal saline and closure with 4-0 monocryl for dermis and subcuticular. The incision was covered with xeroform for the trigger finger, Dermabond for the wrist and elbow then 4x4s, yue, and a posterior elbow and volar wwrist splint for patient safety, security and comfort and secured with helen bandages after the tourniquet was let down noting the hand was warm and well perfused.? Patient awaken from anesthesia and transferred to recovery in stable condition Complications - none EBL- 1cc Disposition - home in stable conditions Kanwal Hoskins PA-C was essential for postiioning, retraction, closure and dressing and splint placement [facility] Billing Surgery - Charge Forward: Surgery Billing ([id number] same for kanwal adding modifier except don't bill [id number])
[2023-07-16] MEDS: ceFAZolin SODIUM 2 GM/20 ML SW SYRINGE IV PUSH (07:25)
[2023-07-16] MEDS: LIDOCAINE HCL 1% LOCAL INJ 20 ML VIAL 5 ML INFILTRATE (07:33)
[2023-07-16] MEDS: BUPIVACAINE/EPINEPHRINE 0.5% 50 ML VIAL INFILTRATE (07:33)
[2023-07-16 08:05] VITALS: BP 103/70; PULSE 70; RESP 12; TEMP 36.8; O2SAT 100
[2023-07-16 08:20] VITALS: BP 125/80; PULSE 78; RESP 13; O2SAT 100
[2023-07-16 08:35] VITALS: BP 137/88; PULSE 84; RESP 18; O2SAT 98
--- NOTE | 2023-07-16 08:37 | SUR.PHASEI ---
PT AWAKE AND ALERT. TALKATIVE. DENIES PAIN.
[2023-07-16 08:42] VITALS: BP 134/82; PULSE 84; RESP 16; O2SAT 97
[2023-07-16 09:10] VITALS: BP 141/85; PULSE 82; RESP 18; O2SAT 98
--- NOTE | 2023-07-16 11:28 | WPDANESPN ---
Anes - Prog Note Post-Op Date/Time: 07/16/23 11:28 Cardiovascular status: normal Respiratory status: normal Airway patency: baseline Mental status: baseline Post-Op hydration status: normal Vital Signs: Last Vital Signs Temp 36.8 C 07/16/23 08:05 Pulse 82 07/16/23 09:10 Resp 18 07/16/23 09:10 BP 141/85 H 07/16/23 09:10 Pulse Ox 98 07/16/23 09:10 O2 Del Method Room Air 07/16/23 09:10 O2 Flow Rate 6 07/16/23 08:20 Pain Score (VAS): 0 I/O: Intake & Output 07/15/23 07/16/23 07/16/23 23:59 07:59 15:59 Intake Total 200 Balance 200 Post-procedural complaints: none Patient Feedback: Patient satisfied with anesthetic care. Other Findings: Patient vital signs back to baseline. Patient denies nausea and vomiting. Patient's pain under control. Patient OK for discharge.
== END 2023-07-16 09:35 | disposition home or self-care (01) ==
PROVIDERS: PCP Family Medicine; Visit Provider Plastic Surgery
PROC: 01N54ZZ Release Median Nerve, Percutaneous Endoscopic Approach (ICD-10-PCS; CPT 29848; principal; 2023-07-16 07:30)
PROC: (CPT 26055; 2023-07-16 07:30)
PROC: (CPT 29848; 2023-07-16 07:30)
DX: G56.01 Carpal tunnel syndrome, right upper limb (principal); G56.21 Lesion of ulnar nerve, right upper limb; M65.331 Trigger finger, right middle finger
CPT/HCPCS: 29848; 64718; 26055

== ENCOUNTER 2023-09-01 10:07 | Outpatient (CLI) | payer MEDICARE, SELFPAY ==
--- NOTE | ~2023-09-01 | XR_ITS ---
Right Hand Technique: PA, oblique, and lateral views were obtained. Clinical History: Third digit pain Findings: No acute fracture or dislocation is seen. Osseous alignment is anatomic. Joint spaces are p reserved. Soft tissues are unremarkable. Impression: Unremarkable right hand. Reviewed, dictated and finalized at location . Impression: Unremarkable right hand.
== END 2023-09-01 10:08 | disposition home or self-care (01) ==
PROVIDERS: PCP Family Medicine; Visit Provider Physician Assistant Surgical
DX: M79.644 Pain in right finger(s) (principal)
CPT/HCPCS: 73130

== ENCOUNTER 2024-01-09 07:23 | Outpatient (CLI) | payer MEDICARE, SELFPAY ==
--- NOTE | ~2024-01-09 | MR_ITS ---
EXAMINATION: MR cervical spine wo con DATE: 01/09/2024 08:16 INDICATION: Right hand and arm numbness. Lesion of ulnar nerve, unspecified upper limb. TECHNIQUE: Magnetic resonance imaging (MRI) of the cervical spine was performed without intravenous c ontrast. COMPARISON: Cervical spine MRI 11/14/2015 FINDINGS: There is 4 degrees levocurvature of cervical spine. Vertebral body heights are normal. Inte rvertebral disc heights are normal. The spinal cord signal intensity is normal The following disc lev els are specifically discussed: C2-C3: The disc does not extend beyond the endplate margin. There is no uncovertebral joint osteoarth ritis. There is mild left facet joint osteoarthritis. There is ankylosis of right facet joint with mi ld hypertrophy. There is mild right neural foraminal stenosis. There is no central canal stenosis. C3-C4: There is a central protrusion. There is mild bilateral uncovertebral joint osteoarthritis. The re is moderate bilateral facet joint osteoarthritis. There is moderate right and mild left neural for aminal stenosis. There is no central canal stenosis. C4-C5: The disc does not extend beyond the endplate margin. There is mild bilateral uncovertebral paula nt osteoarthritis. There is moderate right and severe left facet joint osteoarthritis. There is mild left neural foraminal stenosis. There is no central canal stenosis. C5-C6: The disc does not extend beyond the endplate margin. There is mild bilateral uncovertebral paula nt osteoarthritis. There is severe right and moderate left facet joint osteoarthritis. There is mild right neural foraminal stenosis. There is no central canal stenosis. C6-C7: The disc is bulging. There is moderate bilateral uncovertebral joint osteoarthritis. There is severe right and moderate left facet joint osteoarthritis. There is moderate right and mild left neur al foraminal stenosis. There is mild central canal stenosis. C7-T1: The disc does not extend beyond the endplate margin. There is no uncovertebral joint osteoarth ritis. There is moderate bilateral facet joint osteoarthritis. There is mild bilateral neural foramin al stenosis. There is no central canal stenosis. IMPRESSION: 1. Moderate cervical spondylosis, worsened from 11/14/15. Reviewed, dictated and finalized at location A.
== END 2024-01-09 07:24 | disposition home or self-care (01) ==
PROVIDERS: PCP Family Medicine; Visit Provider Student in an Organized Health Care Education/Training Program
DX: M47.22 Other spondylosis with radiculopathy, cervical region (principal)
CPT/HCPCS: 72141

== ENCOUNTER 2024-04-11 06:34 | Outpatient (CLI) | payer MEDICARE, SELFPAY ==
--- NOTE | ~2024-04-11 | CT_ITS ---
CT of the Abdomen and Pelvis: Indication: Abdominal pain Technique: 2.5 mm axial scans were obtained through the abdomen and pelvis following intravenous adm inistration of 100 cc of Omnipaque 350. Dose reduction technique was used on this scan by utilizing a utomated exposure control and iterative reconstruction technique. The dose-length product (DLP) was 3 30.90 mGy-cm. Findings: Scans through the lung bases-a probable chronic scarring or atelectasis the right lung bas e with right basilar calcified granuloma.. The liver, spleen, pancreas, adrenals and kidneys are within normal limits. Cholecystectomy clips are present. There are atherosclerotic calcifications of the aorta. No lymphadenopathy. No bowel obstruction or bowel wall thickening. There is no evidence to suggest acute appendicitis. Images through the pelvis were performed. Urinary bladder unremarkable. No pelvic mass seen. No ascit es. Small bilateral fat-containing inguinal hernias are present. Impression: Small bilateral fat-containing inguinal hernias. Right basilar chronic scarring or atelectasis. Reviewed, dictated and finalized at [facility]. Impression: Small bilateral fat-containing inguinal hernias. Right basilar chronic scarring or atelectasis.
[2024-04-11 07:10] LABS: Estimated Glomerular Filt Rate > 60
== END 2024-04-11 06:35 | disposition home or self-care (01) ==
PROVIDERS: PCP Family Medicine; Visit Provider Family Medicine
DX: R10.13 Epigastric pain (principal); R10.31 Right lower quadrant pain; K40.20 Bilateral inguinal hernia, without obstruction or gangrene, not specified as recurrent
CPT/HCPCS: 74177; Q9967

== ENCOUNTER 2025-02-09 14:14 | Outpatient (CLI) | payer MEDICARE, SELFPAY ==
--- OUTSIDE RECORDS SUMMARY | 2025-02-08 12:40 | XMS_ITS | Encounter Summary ---
Author Organization [facility] Address [address] [facility] [address] [place] [address] Phone Care Team Providers Care Air Twister Winder Name Role Phone Diane Castillo MD Primary Care Provider [phone] Encounter Details Date Type Department Care Team (Late st Contact Info) Description 02/08/2025 12:40 PM CDT Office Visit [facility] ([facility]) [facility] [address] [facility] 11th [place] [address] [place] [address] Manoj Darling IV, MD [address] [facility] [place] [address] Social History Tobacco Use Types Packs/Day Years Used Date Smoking Tobacco: Every Day Cigarettes 0.8 47.7 Started: 1975 Smokeless Tobacco: Never Alcohol Use Standard Drinks/Week Comments No 0 (1 standard drink = 0.6 oz pur e alcohol) AUDIT-C Answer Date Recorded Q1: How often do you have a drink containing alc ohol? Never 05/11/2024 Average Number of Drinks Not on file 024 Frequency of Binge Drinking Not on file 04/16 Hunger Vital Sign Answer Date Recorded Within the past 12 months, y ou worried that your food would run out before you got the money to buy more. Never true 05/11/20 24 Within the past 12 months, t he food you bought just didn't last and you didn't have money to get more. Never true 05/11/2024 Personal Safety Answer Date Recorded Have you ever been in or are you currently in a harmful physical or emotional relationship or is someone making you feel afraid or unsafe? 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) Not on file Not on file Not on file documented as of this encounter Plan of Treatment Upcoming Encounters Date Type Department Care Team (Late st Contact Info) Description 03/17/2025 7:30 AM CDT Hospital Encounter [facility] [address] [place] [phone] Peter Gurrola MD [address] [address] 03/17/2025 7:30 AM CDT - 03/17/2025 8:30 AM CDT Surgery [facility] [address] [place] [phone] Peter Gurrola MD [address] [address] EGD Scheduled Procedures Name Priority Associated Diagnoses Date/Ti me ESOPHAGOGASTRODUODENOSCOPY Generalized postprandial abdominal pain Other constipation Weight loss Marginal ulcer Tubular adenoma 03/17/2025 7:30 AM CDT COLONOSCOPY Generalized postprandial abdominal pain Other constipation Weight loss Marginal ulcer Tubular adenoma 03/17/2025 7:30 AM CDT documented as of this encounter Visit Diagnoses Not on filedocumented in this encounter Care Teams Air Twister Winder Relationship Specialty Start Date End Date Diane Castillo MD PCP - General 07/31/15 documented as of this encounter
--- NOTE | ~2025-02-09 | US_ITS ---
US scrotum doppler INDICATION: Right testicular swelling TECHNIQUE: Testicular sonogram utilizing grayscale and color Doppler FINDINGS: The testes are normal in size and appearance. No focal lesions are seen. The right testes measures 4.2 x 2.2 x 3.1 cm centimeters, and the left testis measures 4.1 x 2.2 x 2.4 cm cm. There is normal vascular flow to both testes. There are bilateral epididymal cysts, largest on the left measuring 1.7 cm. There are bilateral hydroceles. No varicocele. IMPRESSION: 1. Bilateral epididymal cysts. 2: Small bilateral hydroceles. Reviewed, dictated and finalized at location O.
--- OUTSIDE RECORDS SUMMARY | 2025-02-09 14:21 | XMS_ITS | Clinical Summary ---
Author Organization [facility] Address [address] [place] [address] Care Team Providers Care Vamper Name Role Phone Diane Castillo MD Primary Care Provider Social History Tobacco Use Types Packs/Day Years Used Date Smoking Tobacco: Never Assessed Sex and Gender Information Value Date Recorded Sex Assigned at Not on file Legal Sex Male 8:17 PM CDT Gender Identity Not on file Sexual Orientation Not on file Plan of Treatment Health Maintenance Due Date Last Done Comments Colorectal Cancer Screening Colonoscopy (10 Years) 1962 Annual Physical 1965 Hepatitis C 02/16/1980 DTaP, Tdap and Td Vaccines ( 1 - Tdap) 1981 Pneumococcal Vaccine: 50+ Ye ars (1 of 1 - PCV) 02/16/2012 Zoster Vaccines (1 of 2) 02/16/2012 COVID-19 Vaccine ( - 2023-2 5 season) 2024 RSV Immunization or 60+ Years (1 - 1-dose 75+ series) 2037 Meningococcal B Vaccine Aged Out No l onger eligible based on patient's age to complete this topic Meningococcal Vaccine Aged Out No georgina scott eligible based on patient's age to complete this topic RSV Immunizations Under 20 Months Aged Out No longer eligible based on patient's age to complete this topic Care Teams Vamper Relationship Specialty Start Date End Date Diane Castillo MD PCP - General 06/20/13
--- OUTSIDE RECORDS SUMMARY | 2025-02-09 14:21 | XMS_ITS | Clinical Summary ---
Author Organization [facility] Address [address] [place] [address] Care Team Providers Care Crm Manager Name Role Phone Unavailable Primary Care Provider Unavailabl e Source Comments [facility],non-owned Affiliates and Associated Physician Practices is amultiple site organization consisting of ambulatory clinics and hospital sitesin [place], [place], [place] and [place]. This disclosure is being madepursuant to the Care Everywhere program and may not contain all information available regarding this patient. 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 Gender Identity Not on file Sexual Orientation Not on file Last Filed Vital Signs Vital Sign Reading Time Taken Comments Blood Pressure 111/74 05/03/2014 9:54 AM REAL ESTATE TEACHER Pulse 79 05/03/2014 9:54 AM REAL ESTATE TEACHER Temperature - - Respiratory Rate 16 05/03/2014 9:54 AM REAL ESTATE TEACHER Oxygen Saturation - - Inhaled Oxygen Concentration - - Weight 70.8 kg (156 lb) 05/03/2014 9:54 AM REAL ESTATE TEACHER Height 172.7 cm (5' 8) 05/03/2014 9:54 AM REAL ESTATE TEACHER Body Mass Index 23.72 05/03/2014 9:54 AM REAL ESTATE TEACHER Plan of Treatment Health Maintenance Due Date Last Done Comments COLOGUARD (AGES 45-75) - COL ON CA SCREENING 1962 COLON MONITORING 1962 COLONOSCOPY - COLON CA SCREENING 1962 CT COLONOGRAPHY - COLON CA SCREENING 1962 Colorectal Cancer Screening 1962 FIT - COLON CA SCREENING 1962 FLEX SIG - COLON CA SCREENING 1962 LIPID TESTING 1962 HIV SCREENING 1977 HEPATITIS C SCREENING 02/11/1980 DTAP/TDAP/TD VACCINES (1 - Tdap) 1981 PNEUMOCOCCAL VACCINE 50+ (1 of 1 - PCV) 02/16/2012 ZOSTER VACCINE (1 of 2) 02/16/2012 COVID-19 VACCINE (1 - 2023-2 5 season) 2024 DEPRESSION SCREENING 06/15/2024 INFLUENZA VACCINE (#1) 2025 Respiratory Syncytial Virus (RSV) Vaccine Pt: or over 60 yrs (1 - 1-dose 75+ series) 2037 HEPATITIS B VACCINE Aged Out No longe r eligible based on patient's age to complete this topic HIB VACCINE Aged Out No longer eligi ble based on patient's age to complete this topic HPV VACCINE Aged Out No longer eligi ble based on patient's age to complete this topic MENINGOCOCCAL (Group B) VACC INE SHARED DECISION-MAKING Aged Out No longer eligibl e based on patient's age to complete this topic MENINGOCOCCAL GROUPS A/C/Y/W VACCINE Aged Out No longer eligible b ased on patient's age to complete this topic Insurance MEDICARE [facility]
--- OUTSIDE RECORDS SUMMARY | 2025-02-09 14:21 | XMS_ITS | Patient Health Record ---
Author Organization [facility] Address [address] [place] [address] Support Name Relationship Address Phone Maximiliano Shad Guarantor Unknown [phone] Reason For Referral No Information Plan Of Treatment No Information Insurance Providers Payer Name Payer Address Payer Phone Subscriber Number Group Number Insured Name Patient Relationship to Insured Coverage Start Date Coverage End Date [place] [address] [place], [place] [id number] Shad Viera Self - patient is the insured [facility] [address] [place], [place] [id number] Penny Viera Self - patient is the insured [place] Medicare [address] [address] [place], [place] [id number] Viera Shad Self - patient is the insured Medical (General) History Surgical History Surgery Date(Month/Year) Cholecystectomy:2004 Appendectomy Ercp duct stent placement ([id number]):ERCP 12/10/[address] 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 Morphologic changes of the pancreatic duct of unclear clinical significance. Dual-duct protective stenting was perfo 12/10/2014 Ercp duct stent placement ([id number]) 2014 Egd/endoscopy:Ahmed Gastritis. Path-- duodenal bx neg. Mild reactive gastropathy, neg for H. pylori. 03/05/2017
--- OUTSIDE RECORDS SUMMARY | 2025-02-09 14:21 | XMS_ITS ---
Author Organization [facility] Address [address] [place] [address] Care Team Providers Care Sas Developer Analyst Name Role Phone Diane Castillo MD Primary Care Provider [phone] Active Problems Problem Noted Date Diagnosed Date Tubular adenoma 09/08/2024 Generalized postprandial abdominal pain 07/22/19 22 Overview (07/22/2021): Added automatically from request for surgery [id number] Gastric ulcer 07/22/2021 Overview (07/22/2021): Added automatically from request for surgery [id number] Prostate cancer 05/14/2021 Overview (05/14/2021): Added automatically from request for surgery [id number] Elevated PSA 04/08/2021 Overview (04/08/2021): Added automatically from request for surgery [id number] Lower urinary tract symptoms (LUTS) 09/11/2020 Kidney cysts 09/11/2020 Other constipation 07/24/2020 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 man with chorea for 7 years that began in 2013 after recovering from hospitalization with laparotomy, treatment with promethazine for nausea, but also severe illness requiring ICU care. - Genetic testing for HD 01/16/20: Intermediate (30, 17) - Motor symptoms: chorea has progressed. He did not tolerate TBZ due to nausea: unclear whether this was a side effect or a coincidental symptom. The motor UHDRS score today was 23 in Jan 2021, 15 in Dec 2018, with contributions mainly from chorea. The motor UPDRS score today was 12 in Jan 2021, 5 in Dec 2018. Given that the chorea is further interfering with sleep (takes 2+ naps a day) and may be triggering some of his falls (6 in a year), I will start a neuroleptic in an attempt to reduce chorea. Later he can transition to TBZ if this is appropriate. Will start risperidone. - Dx: today he said that, during his hospitalization for laparotomy in 2013, he spent time in the ICU and was sufficiently ill that, as he put it, his girlfriend was asked to sign the papers to unplug me. Unclear whether he referred to DNR order vs. support withdrawal. The movements started at some point after this hospitalization. Genetic testing for HD (16 Jan 2020) yielded intermediate expansion, 30 repeats. I doubt the dx is HD due to 30 being such a small number of repeats in the intermediate range, and the dominance of chorea over any other symptom in the UHDRS, i.e. motor incoordination is minimal. His cognitive and mood status remain excellent at the functional level (helps friends fix computer problems; makes crafts). What the dx is, however, remains unclear. Given the severe illness in ICU, I now wonder whether the chorea could be secondary to hypoxic brain damage. I will discuss with Dr. Cartagena regarding possible further testing. - Falls: 6. Treatment of chorea is intended to reduce this risk. PLAN (phrased as addressed to the patient): - Your involuntary movements are likely interfering with your sleep and with your balance. - Start risperidone 1 mg tablets (prescribed): 1/2 tab 2x/day for 1 week and then 1 tab 2x/day - Look out for excessive slowing of movements or increased balance problems and falls. - Contact my office in 6 weeks to report how many times per night you are waking up. This encounter's total jaiz-wg-epph time was greater than 30 minutes. I spent more than 50% of this time in counseling and/or coordination of care as documented in the note. The patient visit started at 0807 and ended at 08. Greater than 50% of the visit was spent on counseling and coordinating care. Patient was counseled on reason for starting risperidone Assessment & Plan (01/09/2020 5:13 PM CDT): Images from the original note were not included. - 59 y.o. man with chorea for 6 years that began in 2013 at age 53 with involuntary movements of his mouth that later spread to his entire body - Today he mentioned that he learned from a sister that his maternal grandfather had involuntary movements. His mother at 80 with Alzheimer's disease. She did not have involuntary movements. - TSH 02/09/19: normal - Brain MRI 02/09/19 (report reviewed): unremarkable - Motor symptoms: chorea is now prominent subjectively and on exam, and is likely causing sleep disruption. Will start treatment with tetrabenazine. - Dx: hypothyroidism has been excluded. I am now more concerned about Martha's disease than I was in the past. He is agreeable to testing. I will ask the HD clinic's social economist to reach to arrange this test. - Falls: rare. PLAN (phrased as addressed to the patient): - Start tetrabenazine 12.5 mg tabs: week 1, 1 tab in AM; week 2, 1 tab 2x/day; week 3 & after, 1 tab 3x/day - Look out for slowness of movements and poor balance - Someone from our center will reach out to you for possible genetic testing for Martha's disease, as we discussed. - Contact my office 4 weeks after you have started tetrabenazine for an update. This was a telemedicine visit with Shad Viera alone which took place via Real-time video connection (Mapbox, Zoom or similar). During the visit, I was located in the office and the patient was located at home in the [place] [facility]. The patient visit started at 1635 and ended at 1708. Greater than 50% of the video/phone call was spent on counseling and coordinating care. Patient was counseled on possible causes of insomnia. The patient: has been informed that the visit may not be secure and acknowledged the information. The option of participating in a telephone or video visit during the ID-19 public health emergency was explained to them. After being given an opportunity to ask questions about and discuss this type of visit, they verbally consented to proceeding with the telephone/video visit and understand that this service replaces an office visit. Heriberto Jacques MD Assessment & Plan (01/06/2019 2:09 PM CDT): - 58 y.o. man with a 5-year history of involuntary movements that began in the mouth and later extended to his hands. He has a history of major abdominal surgery in 2012 (a year before the onset of the movements) and a history of treatment with promethazine. Details of dates and duration of treatment with this medication are not immediately available. He has not noticed problems with hand coordination, gait, or balance, and he has not had cognitive or mood symptoms. He does not have a family history of involuntary movements. - The examination revealed moderate chorea in the orobuccal region and the arms and mild impairment of tandem gait. There was no dystonia, motor impersistence, hand movement irregularity, motor sequencing problems, or eye movement abnormalities. The motor UHDRS score was 15, dominated by chorea. - There was lip tremor that qualified as parkinsonian, and that gace rise to a motor UPDRS score of 5, together with other non-specific motor symptoms. I do not consider this to be of significance. The lip tremor may be part of a tardive dyskinesia diagnosis. - The most likely diagnosis is tardive dyskinesia, i.e. a syndrome of choreoathetosis that began in a craniocervical distribution and extended to include (unusually) the arms. This diagnosis presumes that Mr. Viera took a D2-type dopamine receptor blocking agent, such as promethazine, for at least several weeks, and that this medication was stopped no sooner than 6-12 months before the onset of the movements. Another possible cause of chorea is hyperthyroidism. There were no clear systemic symptoms or exam findings to suggest this diagnosis. - The chance of [place]'s disease is very low given that the syndrome is of isolated chorea (with only minimal gait abnormality) and no other motor abnormality and no clear behavioral or cognitive dysfunction. The suspicion for HD is low enough that I would not consider genetic testing for HD at this time. - I reviewed outside records from outside physicians (15 pages) NEUROPSYCHOLOGICAL EVALUATION: INTERPRETATION Cognitive tests: Moderately impaired performance on MoCA. Depression screening questionnaires: No evidence of depression on GDS; No evidence of depression on HADS. Mild evidence of anxiety on HADS. Mild evidence of daytime drowsiness on [place] scale. No evidence of REM Behavior Disorder (RBD) on Stiasny-Kol[place] scale. These scores establish a baseline for potential future reference and do not require a change in current plan. PLAN (phrased as addressed to the patient): - Your involuntary movement is called chorea. Its cause is unclear. - There is no need to treat it now unless it starts bothering you. - Lab test: thyroid function - Brain MRI: you will be called for this. - Call my office if your balance worsens RESEARCH PARTICIPATION NOTES - Syndrome: chorea - Body part affected at onset: jaw - Body part affected now: gen - Etiology: tardive dyskinesia - Confidence: possible - Age at onset: 53 - Familial: no - Distance: -- - Slow gait: no - Pull test score: 0 - Brain Donation Program: not asked - Genetics of PD: N/A - PIB/PAND: N/A Weight loss 12/01/2017 Pain in shoulder 04/18/2016 Marginal ulcer 05/02/2013 Cervical radiculopathy 03/31/2013 Notalgia 03/31/2013 Chronic obstructive pulmonary disease Current Treatment and Therapy Plans No current plan information found. Past Treatment and Therapy Plans No past plan information found. Lifetime Dose Tracking * Chemical Lifetime Dose Automatic Entry Manual Entr y DLP 517 mGycm 517 mGycm 0 mGycm Resolved Problems Problem Noted Date Diagnosed Date Resolved Date Generalized postprandial abdominal pain 07/24/2020 12/06/2020 Overview (07/24/2020): Added automatically from request for surgery [id number]
--- OUTSIDE RECORDS SUMMARY | 2025-02-09 14:21 | XMS_ITS | Clinical Summary ---
Author Organization [facility] Address [address] [place] [address] Care Team Providers Care Bee Worker Name Role Phone Diane Castillo MD Primary Care Provider [phone] Allergies Active Allergy Reactions Criticality Noted Date Comments Adhesive Other (See Comments) High 06/11/2021 Paper tape Hydromorphone Rash,Itching Low 01/16/2020 Ibuprofen Other (See Comments) 02/14/2021 Stomach/pancreas Other reactions: Stomach upset, pancreas. Ketamine Unknown Low 01/16/2020 Morphine Hallucination High 01/16/2020 Oxycodone Unknown 08/23/2021 Medications rizatriptan (MAXALT) 10 mg Tablet TAKE ONE TABLET BY MOUTH ONCE MAY REPEAT AT 2 HOURS INTERVALS (DO NOT EXCEED 30 MG IN 24 HOURS) 0 Active ondansetron (ZOFRAN) 8 mg Tablet Take by mouth. Activ e omeprazole (PriLOSEC) 40 mg Capsule, Delayed Release(E.C.) TAKE 1 CAPSULE BY MOUTH ONCE DAILY 0 Active meclizine (ANTIVERT) 25 mg tablet Take 25 mg by mouth. Active ipratropium bromide (ATROVENT) 0.02 % Solution Take 500 mcg by inhalation Post-Proc q 6 hours. Active pxaxlq-xqawoqys-q roxana Rivero) 36,000-114,000-18 0,000 unit capsule take 2 capsule by oral route 3 times every day with meals and 1 capsule with each snack swallowing whole. Do not crush, chew and/or divide. 6 Active famotidine (PEPCID) 20 mg tablet 20 mg. 6 Active Vitamin D2 1,250 mcg (50,000 unit) capsule TAKE 1 CAPSULE BY MOUTH ONCE A WEEK 0 Active diclofenac sodium (VOLTAREN) 1 % gel Apply 2 Grams to affected area. Active azithromycin (ZITHROMAX) 250 mg tablet TAKE 2 TABLETS BY MOUTH ON DAY 1 AND THEN TAKE 1 TABLET BY MOUTH ONCE A DAY ON DAY 2 THROUGH DAY 5 0 Active budesonide-formot Mack (SYMBICORT) 160-4.5 mcg/actuation HFA Aerosol Inhaler Take 2 Puffs by inhalation. Active clobetasoL (TEMOVATE) 0.05 % Lotion Apply to affected area. Active albuterol (PROVENTIL,VENTOL IN) 2.5 mg /3 mL (0.083 %) Solution for Nebulization Take 2.5 mg by inhalation. Active finasteride (PROSCAR) 5 mg tablet Take 1 tablet by mouth once daily 1 Active polyethylene glycol 3350 (MIRALAX) 17 gram/dose Powder Take 17 Grams by mouth daily. Active risperiDONE (RisperDAL) 1 mg tablet 1/2 tab 2x/day for 1 week and then 1 tab 2x/day 1 Active cyclobenzaprine (FLEXERIL) 5 mg Tablet TAKE ONE TABLET BY MOUTH THREE TIMES A DAY NEEDED FOR MUSCLE SPASM. MAY CAUSE DROWSINESS. DO NOT DRINK ALCOHOL WHILE TAKING THIS MEDICATION. 1 Active lidocaine (LIDODERM) 5 % Adhesive Patch, Medicated APPLY 1 PATCH TO SKIN SITE ONCE A DAY FOR PAIN. APPLY PATCH AND PRESS FIRMLY FOR 10-15 SECONDS. KEEP ON FOR 12 HOURS THEN REMOVE PATCH FOR 12 HOURS. 1 Active ALPRAZolam (XANAX) 0.25 mg tablet Take 0.25 mg by mouth nightly as needed. Active sildenafiL (VIAGRA) 50 mg tablet Take 50 mg by mouth. Active sildenafiL (VIAGRA) 100 mg tablet 100 mg. 2 Active Active Problems Problem Noted Date Diagnosed Date Tobacco use 03/11/2021 Cigarette dependence 03/11/2021 Encounters Date Type Department Care Team Description 12/28/2024 External Device Data ST[facility] ABSTRACTION Provider, Abstract from Last 3 Months Family History Medical History Relation Name Comments Other Father Tobacco Use Other Maternal Aunt Tobacco Use Other Maternal Grandfather Tobacco Use Other Maternal Grandmother Tobacco Use Other Maternal Uncle Tobacco Use Breast Cancer Mother Cancer Mother Breast Other Mother Tobacco Use Other Paternal Aunt Tobacco Use Other Paternal Grandfather Tobacco Use No Known Problems Paternal Grandmother Other Paternal Uncle Tobacco Use Diabetes Sister Other Sister Tobacco Use Relation Name Status Comments Father Maternal Aunt Maternal Grandfather Maternal Grandmother Maternal Uncle Mother Paternal Aunt Paternal Grandfather Paternal Grandmother Paternal Uncle Sister Social History Tobacco Use Types Packs/Day Years Used Date Smoking Tobacco: Every Day Cigarettes Smokeless Tobacco: Never Tobacco Cessation:Ready to Q uit: Not Asked; Counseling Given: Not Answered Alcohol Use Standard Drinks/Week Comments Not Currently 0 (1 standard drink = 0.6 oz pur e alcohol) Sex and Gender Information Value Date Recorded Sex Assigned at Not on file Legal Sex Male 2:30 PM CDT Gender Identity Not on file Sexual Orientation Not on file Last Filed Vital Signs Vital Sign Reading Time Taken Comments Blood Pressure 102/60 02/17/2024 10:57 AM CDT Pulse 83 02/17/2024 10:57 AM CDT Temperature 37.2 C (99 F) 02/17/2024 10:57 AM CDT Respiratory Rate 14 02/22/2021 9:50 AM CDT Oxygen Saturation 100% 02/22/2021 9:50 AM CDT Inhaled Oxygen Concentration - - Weight 73.9 kg (163 lb) 02/17/2024 10:57 AM CDT Height 172.7 cm (5' 8) 02/17/2024 10:57 AM CDT Body Mass Index 24.78 02/17/2024 10:57 AM CDT Plan of Treatment Health Maintenance Due Date Last Done Comments Pre-Diabetes and Diabetes Screening 1960 FIT-DNA Q 3 years 2007 FIT/FOBT Q 1 year 2007 Flex Sig/CT Colonography Q 5 years 2007 ZOSTER VACCINE (1 of 2) 02/16/2012 DTAP/TDAP/TD VACCINES (2 - T d or Tdap) 06/15/2019 06/15/2009 RSV VACCINE (60+ or ) (1 - Risk 60-74 years 1-dose series) 2022 INFLUENZA VACCINE (#1) 2025 07/05/2019, 2017 COLORECTAL SCREENING 09/10/2031 09/09/2021, 09/09/2021, 08/13/2020 Colorectal Cancer Screening 09/10/2031 Abdominal Aortic Aneurysm (A AA) Screening Completed 07/08/2014, 06/05/2013, 05/27/2013 Medical Devices Implanted Type Area Wellness Trainer Device Identifier Shelf Expiration Date Model / Serial / Lot Implant System, Biocomposite [place] Implanted:Qty: 1 on 03/16/2020 by Dl Samayoa MD at [facility] [place] Right: Shoulder [employer] 08/12/2021 [id number] / / [id number] Insurance [facility] [id number] RX [employer] (INTERNAL) [facility] [employer] Advance Directives For more information, please contact: [phone] * Full Code (Latest Code Status on File) Date Activated Date Inactivated Comments 02/22/2021 6:50 AM 02/22/2021 12:20 PM * Full Code Date Activated Date Inactivated Comments 03/16/2020 12:37 PM 03/16/2020 9:51 PM Care Teams Bee Worker Relationship Specialty Start Date End Date Diane Castillo MD [address] [place] [address] PCP - General Family Practice 12/19/19
--- OUTSIDE RECORDS SUMMARY | 2025-02-09 14:21 | XMS_ITS | Clinical Summary ---
Author Organization [facility] Address [address] [place] [address] Care Team Providers Care Program Director Group Work Name Role Phone Diane Castillo MD Primary Care Provider [phone] Allergies Active Allergy Reactions Criticality Noted Date Comments Adhesive Blisters High 06/11/2021 Paper tape Diphenhydramine Mental status changes Low Hydromorphone Itching,Rash Medium 01/16/2020 Reaction: Rash, Ibuprofen Other (See comments) Low 02/14/2021 MD instructed not to ever take due to stomach ulcers Stomach/pancreas Other reactions: Stomach upset, pancreas. Ketamine Other (See comments),Unknown Low 01/16/2020 Could not come out of the anesthetic effect Morphine Hallucinations High 01/16/2020 Oxycodone Other (See comments),Nausea & Vomiting,Unknown Low 04/24/2021 Disoriented Medications pancrelipase (CREON) 36,000 units of lipase capsule,delayed release(DR/EC) capsule take 2 capsule by oral route 3 times every day with meals and 1 capsule with each snack swallowing whole. Do not crush, chew and/or divide. 0 0 07/10/19 16 Active famotidine (PEPCID) 20 mg tablet take 2 tablet by oral route 3 times every day 0 0 07/10/19 16 Active ondansetron (ZOFRAN) 8 mg tabletIndications: PRN Take 1 tablet (8 mg total) by mouth every 8 (eight) hours as needed for nausea or vomiting Active diclofenac sodium (VOLTAREN) 1 % gelIndications:gou t Apply 2 g topically as needed Active polyethylene glycol (MIRALAX) 17 gram packetIndications: constipation Take 17 g by mouth as needed Active lidocaine (LIDODERM) 5 % Place 1 patch on the skin as needed for pain 07/10/19 21 Active cyclobenzaprine (FLEXERIL) 5 mg tablet Take 1 tablet (5 mg total) by mouth as needed for muscle spasms 01/25/20 21 Active cyanocobalamin, vitamin B-12, (VITAMIN B-12 ORAL)Indications:s upplement Take 2 tablets by mouth every 2 (two) weeks No particular day Active rizatriptan MACHINE REBUILDER (MAXALT-MACHINE REBUILDER) 10 mg disintegrating tabletIndications: Migraine Take 1 tablet (10 mg total) by mouth as needed for migraine May repeat in 2 hours if unresolved. Do not exceed 30 mg in 24 hours. Active meclizine (ANTIVERT) 25 mg tabletIndications: Vertigo Take 1 tablet (25 mg total) by mouth 3 (three) times a day as needed for dizziness Active clobetasoL (TEMOVATE) 0.05 % cream Apply topically 2 (two) times a day Active ergocalciferol (VITAMIN D) 50,000 unit capsule Take 50,000 Units by mouth once a week 06/14/20 21 Active sildenafiL (VIAGRA) 50 mg tablet Take 50 mg by mouth daily as needed for erectile dysfunction Active albuterol 0.63 mg/3 mL nebulizer solution USE 1 VIAL IN NEBULIZER EVERY 4 TO 6 HOURS NEEDED FOR SHORTNESS OF BREATH OR WHEEZING 06/26/19 23 Active omeprazole (PriLOSEC) 40 mg capsule Take 1 capsule (40 mg total) by mouth 2 (two) times a day before breakfast and dinner 180 capsule 3 10/30/19 23 Active prochlorperazine (COMPAZINE) 10 mg tablet Take 1 tablet (10 mg total) by mouth 2 (two) times a day as needed for nausea or vomiting 10 tablet 01/19/20 23 Active butalbital-acetami nophen-caffeine (ESGIC) 50-325-40 mg per tablet Take 1 tablet by mouth every 6 (six) hours as needed for headaches or migraine 15 tablet 02/05/20 23 Active rosuvastatin (CRESTOR) 10 mg tablet Take 0.5 tablets (5 mg total) by mouth nightly 11/13/19 23 Active galcanezumab-gnlm 120 mg/mL pen injector Inject 120 mg under the skin every 30 (thirty) days INJECT 240MG/2ML (2 PENS) UNDER THE SKIN ONCE FOR 1 MONTH, THEN INJECT 120MG/1ML (1 PEN) MONTHLY THEREAFTER FOR MIGRAINE HEADACHE 04/14/20 23 Active cholecalciferol 25 mcg (1,000 unit) tablet Take 1 tablet (1,000 Units total) by mouth daily 11/13/19 23 Active amLODIPine (NORVASC) 10 mg tablet Take 1 tablet (10 mg total) by mouth 03/05/20 24 Active losartan-hydroCHLO ROthiazide (HYZAAR) 50-12.5 mg per tablet Take by mouth 09/15/19 24 Active Active Problems Problem Noted Date Diagnosed Date Tubular adenoma 09/08/2024 Generalized postprandial abdominal pain 07/22/19 22 Overview (07/22/2021): Added automatically from request for surgery [id number] Gastric ulcer 07/22/2021 Overview (07/22/2021): Added automatically from request for surgery [id number] Prostate cancer 05/14/2021 Overview (05/14/2021): Added automatically from request for surgery [id number] Elevated PSA 04/08/2021 Overview (04/08/2021): Added automatically from request for surgery [id number] Lower urinary tract symptoms (LUTS) 09/11/2020 Kidney [...] you are waking up. This encounter's total dbbj-ji-yjxk time was greater than 30 minutes. 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 - [...] to you for possible genetic testing for [place]'s disease, as we discussed. - Contact my office 4 weeks after you have started tetrabenazine for an update. This was a telemedicine visit with Shad Viera alone which took place via Real-time video connection (Pianpianuch, Zoom or similar). During the visit, I was located in the office and the patient was located at home in the [facility] [place]. The patient visit started at 1635 and ended at 1708. Greater than 50% of the video/phone call was spent on counseling and coordinating care. Patient was counseled on possible causes of insomnia. The patient: has been informed that the visit may not be secure and acknowledged the information. The option of participating in a telephone or video visit during the COVID-19 public health emergency was explained to them. [...] suggest this diagnosis. - The chance of [place]'s disease is very low given that the [...] HADS. Mild evidence of daytime drowsiness on [place] scale. No evidence of REM Behavior Disorder [...] 03/31/2013 Notalgia 03/31/2013 Chronic obstructive pulmonary disease Resolved Problems Problem Noted Date Diagnosed Date Resolved Date Generalized postprandial abdominal pain 07/24/2020 12/06/2020 Overview (07/24/2020): Added automatically from request for surgery [id number] Encounters Date Type Department Care Team Description 02/08/2025 12:40 PM CDT Office Visit [facility] ([facility]) - [facility] Medicine Urology [address] [place] [address] [place] [address] Manoj Darling IV, MD 01/12/2025 Telephone [facility] Medicine Gastroenterology [address] [place] [address] [place] [address] Diane Andrade Follow-up; GI-procedure scheduling from Last 3 Months Immunizations Immunization Administration Dates Next Due Influenza, Quadrivalent, Spl it, Preservative Free, Intramuscular 03/26/2018 Influenza, Unspecified 05/28/2013 Surgical History Surgery Date Site/Laterality Comments APPENDECTOMY 1990s CHOLECYSTECTOMY ? ABSCESS CATHETER INJECTION 07/22/2013 N/A ABSCESS CATHETER INJECTION 07/22/2013 N/A ABSCESS TUBE EXCHANGE 07/13/2013 N/A ABSCESS CATHETER INJECTION 07/13/2013 N/A CT GUIDED DRAINAGE PERITONEA L OR RETROPERITONEAL FLUID COLLECTION 07/13/2013 N/A ABSCESS TUBE EXCHANGE 07/08/2013 N/A ABSCESS TUBE EXCHANGE 07/08/2013 N/A J-TUBE EXCHANGE 07/08/2013 N/A ABSCESS CATHETER INJECTION 07/08/2013 N/A ABSCESS CATHETER INJECTION 07/08/2013 N/A ABSCESS CATHETER INJECTION 07/08/2013 N/A IR INJECTION SINUS TRACT DIAGNOSTIC 07/02/2013 N/A CT GUIDED DRAINAGE PERITONEA L OR RETROPERITONEAL FLUID COLLECTION 07/02/2013 N/A ABSCESS TUBE EXCHANGE 06/27/2013 N/A CT GUIDED DRAINAGE PERITONEA L OR RETROPERITONEAL FLUID COLLECTION 06/21/2013 N/A ABSCESS CATHETER INJECTION 09/19/2013 N/A ABSCESS TUBE EXCHANGE 09/17/2013 N/A ABSCESS CATHETER INJECTION 09/17/2013 N/A ABSCESS TUBE EXCHANGE 08/19/2013 N/A ABSCESS CATHETER INJECTION 08/19/2013 N/A ABSCESS TUBE EXCHANGE 08/15/2013 N/A ABSCESS CATHETER INJECTION 08/15/2013 N/A ABSCESS CATHETER INJECTION 08/15/2013 N/A ABSCESS CATHETER INJECTION 08/05/2013 N/A ABSCESS CATHETER INJECTION 08/05/2013 N/A ABSCESS TUBE EXCHANGE 07/22/2013 N/A CARPAL TUNNEL RELEASE 06/15/2004 - 06/14/2005 Left ulnar nerve BILROTH II PROCEDURE 05/25/2013 Antrectomy 05/2013 SHOULDER SURGERY 03/15/2020 - 04/14/2020 Right bicep tenodesis, subacromial decompression. TRIGGER FINGER RELEASE 02/22/2021 Left long finger trigger release BIOPSY 08/13/2020 small bowel biopsy ESOPHAGOGASTRODUODENOSCOPY multiple COLONOSCOPY multiple ERCP 06/15/2014 - 06/14/2015 ABDOMINAL WASHOUT 05/27/2013 Repair gastrojejunostomy, oversewing of duodenal stump, placement jejunostomy tube, abd washout REFRACTIVE SURGERY Right detached retina surgery BACK SURGERY last one 1989 - 1993 x4 PROSTATECTOMY Medical History Medical History Date Comments Gastric ulcer Migraine COPD (chronic obstructive pulmonary disease) Chorea Anemia GERD (gastroesophageal reflux disease) Pancreatitis Kidney stone 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 Chronic constipation Family History Medical History Relation Name Comments Crohn's disease Father Alzheimer's disease Mother Breast cancer Mother Uterine cancer Mother Diabetes Sister Anesthesia problems Neg Hx Chorea Neg Hx Relation Name Status Comments Father Mother Sister Alive Social History Tobacco Use Types Packs/Day Years Used Date Smoking Tobacco: Every Day Cigarettes 0.8 47.7 Started: 1975 Smokeless Tobacco: Never Tobacco Cessation:Ready to Q uit: No; Counseling Given: Not Answered Alcohol Use Standard Drinks/Week Comments No 0 [...] on file Legal Sex Male 11:30 PM 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 Gender Identity Not on file Sexual Orientation Straight 07/17/2020 10 :10 AM 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 Start Date Job End Date [employer]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) Not on file Not on file Not on file Obstetrics History Last Filed Vital Signs Vital Sign Reading Time Taken Comments Blood Pressure 107/69 05/11/2024 1:00 PM 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 Pulse 84 05/11/2024 1:00 PM 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 Temperature 36.6 C (97.9 F) 05/11/2024 1:00 PM 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 Respiratory Rate 18 05/31/2023 12:05 PM 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 Oxygen Saturation 97% 05/11/2024 1:00 PM 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 Inhaled Oxygen Concentration - - Weight 75.8 kg (167 lb 1.6 oz) 05/11/2024 1:00 P M 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 Height 172.7 cm (5' 8) 05/11/2024 1:00 PM 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 Body Mass Index 25.41 05/11/2024 1:00 PM 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 Plan of Treatment Upcoming Encounters Date Type Department Care Team (Late st Contact Info) Description 03/17/2025 7:30 AM CDT Hospital Encounter [facility] [address] [place] [phone] Peter Gurrola MD [address] [address] 03/17/2025 7:30 AM CDT - 03/17/2025 8:30 AM CDT Surgery [facility] [address] [place] [phone] Peter Gurrola MD [address] [address] EGD Scheduled Procedures Name Priority Associated Diagnoses Date/Ti me ESOPHAGOGASTRODUODENOSCOPY Generalized postprandial abdominal pain Other constipation Weight loss Marginal ulcer Tubular adenoma 03/17/2025 7:30 AM CDT COLONOSCOPY Generalized postprandial abdominal pain Other constipation Weight loss Marginal ulcer Tubular adenoma 03/17/2025 7:30 AM CDT Health Maintenance Due Date Last Done Comments Hepatitis C Screening 1960 Hepatitis B Screening 02/16/1980 Regular Well Visit/Exam 18-64 02/16/1980 Lung Cancer Screening 02/16/2012 Depression Screening 01/04/2020 01/03/2019 Influenza Vaccine (#1) 2025 , 03/26/2018, 03/15/2018, Additional history exists Prostate Cancer Screening-PSA 03/25/2026, 02/04/2023, 07/30/2022, Additional history exists Pneumococcal vaccine <65 (3 of 3 - PCV20 or PCV21) 05/13/2029 05/13/2024, 09/13/2015 DTaP/Tdap/Td Vaccine (3 - Td or Tdap) 07/09/2030 07/09/2020, 06/15/2009 Colon Cancer Screening-Colonoscopy 09/10/2031 09/09/2021, 08/13/2020 Zoster Vaccine Completed 05/18/2019, 02/23/2019 Colon Cancer Screening-CT Colonography Discontinued 09/09/2021, 08/13/2020 Colon Cancer Screening-DNA Stool Discontinued 09/10/19, 08/13/2020 Colon Cancer Screening-FIT Discontinued 09/09/2021, Colon Cancer Screening-Sigmoidoscopy Discontinued 09/09/2021, 08/13/2020 Medical Devices Implanted Type Area Campaign Marketing Manager Device Identifier Shelf Expiration Date Model / Serial / Lot Vesolock [id number] Symmetry Vesolock Large Clip Internal - Sn/A - [id number] Implanted:Qty: 6 on 06/11/2021 by Manoj Darling IV, MD at [facility] Clip N/A: [employer] 03/15/2024 [id number] / N/A / [id number] Vesolock [id number] Symmetry Vesolock Large Clip Internal - Sn/A - [id number] Implanted:Qty: 3 on 06/11/2021 by Manoj Darling IV, MD at [facility] Clip N/A: [employer] 02/14/2024 [id number] / N/A / [id number] Procedures Procedure Name Priority Date/Time Associated Diagnosis Comments PSA DIAGNOSTIC Routine 03/25/2024 11:00 AM CDT Prostate cancer (HCC) COLONOSCOPY 09/09/2021 11:21 AM CDT from Last 3 Months or Most Recently Relevant to Health Maintenance Results * PSA diagnostic (03/25/2024 11:00 AM CDT) PSA-Total <0.02 <=5.40 ng/mL Comment: Interpretive Data AGE SEX REFERENCE INTERVAL 0 minutes-150 years Female None 0 minutes-49 years Male None 50-59 years Male 0-3.90 60-69 years Male 0-5.40 70-79 years Male 0-6.20 80-150 years Male 0-6.20 The Mary PSA Total assay procedure was used. Results from different manufacturers or methods may not be comparable. Serial testing should be performed using the same method. Current interpretive data last revised 21. Blood 03/25/2024 11:0 0 AM CDT 03/25/2024 11:54 AM CDT us Manoj Darling IV, MD LAB BLOOD ORDERABLES Perri rice Result [facility] Department [place] [address] * COLONOSCOPY (09/09/2021 11:21 AM CDT) Anatomical Region Laterality Modality Other Narrative Procedure Note Peter Gurrola MD - 09/09/2021 11:21 AM CDT [facility] Patient Name: Shad Viera Procedure Date: 09/09/2021 11:21 AM Date of : 1960 Admit Type: Outpatient Age: 61 Gender: Male Attending MD: Peter Gurrola M.D. Room: [facility] ENDOSCOPY ROOM 8 Note Status: Finalized Procedure: Colonoscopy Indications: Surveillance: Personal history of adenomatouspolyps, inadequate prep on last colonoscopy (less than 1year ago), Last colonoscopy: August 2020 Referring MD: Diane Castillo M.D. Providers: Peter Gurrola M.D., Marzena Dill M.D. Medicines: Monitored Anesthesia Care Complications: No immediate complications. Estimated Blood Loss: Estimated blood loss was minimal. Procedure: Pre-Anesthesia Assessment: - Prior to the procedure, a History and Physicalwas performed, and patient medications, allergies and sensitivities were reviewed. The patient'stolerance of previous anesthesia was reviewed. - Immediately prior to administration ofmedications, the patient was re-assessed for adequacy to receive sedatives. - The risks and benefits of the procedure and the sedation options and risks were discussed with the patient. All questions were answered and informed consent was obtained. The benefits, risks and alternatives of theprocedure and sedation were discussed and informed consentwas obtained. All questions were answered. Please referto the signed informed consent document in the medical record. The scope was passed under direct vision.The PCF [id number] endoscope was introduced through the anus and advanced to the terminal ileum. The quality of the bowel preparation was evaluatedusing the BBPS ([place] Bowel Preparation Scale) withscores of: Right Colon = 2 (minor amount of residual staining, small fragments of stool and/or opaque liquid, but mucosa seen well), Transverse Colon = 2 (minor amount of residual staining, small fragmentsof stool and/or opaque liquid, but mucosa seen well)and Left Colon = 2 (minor amount of residual staining, small fragments of stool and/or opaque liquid, but mucosa seen well). The total BBPS score equals 6.The bowel preparation used was GoLYTELY via split dose instruction. The quality of the bowel preparationwas adequate to identify polyps. Findings: The perianal and digital rectal examinations were normal. The terminal ileum appeared normal. Two sessile polyps were found in the sigmoid colon and ascendingcolon. The polyps were 4 to 10 mm in size. These polyps were removed with a cold snare. Resection and retrieval were complete. A few small-mouthed diverticula were found in the sigmoid colon. A large amount of liquid semi-solid stool was found in the entirecolon, precluding visualization. Lavage of the area was performed usingcopious amounts of sterile water, resulting in clearance with adequate visualization. Retroflexion in the right colon was performed. The exam was otherwise normal throughout the examined colon. The retroflexed view of the distal rectum and anal verge was normaland showed no anal or rectal abnormalities. Impression: - The examined portion of the ileum was normal. - Two 4 to 10 mm polyps in the sigmoid colon and in the ascending colon, removed with a cold snare. Resected and retrieved. - Diverticulosis in the sigmoid colon. - Stool in the entire examined colon. - The distal rectum and anal verge are normal on retroflexion view. Recommendation: - Await pathology results. - Repeat colonoscopy in 3 - 5 years forsurveillance based on pathology results. - For future colonoscopy the patient will requirean extended preparation. If there are any questions, please contact the revenue research analyst. Electronically signed by Peter Gurrola MD Peter Gurrola M.D. 09/09/2021 12:07:13 PM . Number of Addenda: 0 Note Initiated On: 09/09/2021 11:21 AM Recognized by the [place] [employer] for promoting quality in endoscopy Peter Gurrola MD ENDOSCOPY PROCEDURES Final Resu lt from Last 3 Months or Most Recently Relevant to Health Maintenance Insurance [facility] MEDICARE ADVANTAGE [facility] MEDIC[facility] Address: [facility] [address] [place] [address] MEDICARE [facility] CHOICE PLUS [facility] HMO/PPO Address: [facility] [address] [place] [address] [facility] MDCR HMO REF [facility] MEDICARE ADVANTAGE Advance Directives For more information, please contact: [phone] * Full Code (Latest Code Status on File) Date Activated Date Inactivated Comments 09/09/2021 10:18 AM 09/09/2021 5:23 PM * Full Code Date Activated Date Inactivated Comments 06/11/2021 9:04 PM 06/12/2021 8:35 PM * Full Code Date Activated Date Inactivated Comments 08/13/2020 7:31 AM 08/13/2020 2:57 PM Care Teams Program Director Group Work Relationship Specialty Start Date End Date Diane Castillo MD PCP - General 07/31/15
--- OUTSIDE RECORDS SUMMARY | 2025-02-09 14:21 | XMS_ITS | Encounter Summary ---
Author Organization [facility] Address [address] [place] [address] Phone Care Team Providers Care Manager Communication Name Role Phone Diane Castillo MD Primary Care Provider [phone] Encounter Details Date Type Department Care Team (Late st Contact Info) Description 03/06/2016 Orders Only [facility] Scanning, Provider Social History Tobacco Use Types Packs/Day Years Used Date Smoking Tobacco: Every Day Alcohol Use Standard Drinks/Week Comments No 0 (1 standard drink = 0.6 oz pur e alcohol) Sex and Gender Information Value Date Recorded Sex Assigned at Not on file Legal Sex Male 11:30 PM 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 ONCOLOGY 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 Gender Identity Not on file Sexual Orientation Straight 07/17/2020 10 :10 AM HEMATOLOGY ONCOLOGY CONSULTANT documented as of this encounter Plan of Treatment Upcoming Encounters Date Type Department Care Team (Late st Contact Info) Description 03/17/2025 7:30 AM CDT Hospital Encounter [facility] [address] [place] [phone] Peter Gurrola MD [address] [place] [address] 03/17/2025 7:30 AM CDT - 03/17/2025 8:30 AM CDT Surgery [facility] [address] [place] [phone] Peter Gurrola MD [address] [place] [address] EGD Scheduled Procedures Name Priority Associated Diagnoses Date/Ti me ESOPHAGOGASTRODUODENOSCOPY Generalized postprandial abdominal pain Other constipation Weight loss Marginal ulcer Tubular adenoma 03/17/2025 7:30 AM CDT COLONOSCOPY Generalized postprandial abdominal pain Other constipation Weight loss Marginal ulcer Tubular adenoma 03/17/2025 7:30 AM CDT documented as of this encounter Procedures Procedure Name Priority Date/Time Associated Diagnosis Comments GI - RESULT 03/06/2016 documented in this encounter Results * GI - RESULT (03/06/2016) Anatomical Region Laterality Modality Other us Provider Scanning Final Result documented in this encounter Visit Diagnoses Not on filedocumented in this encounter Care Teams Manager Communication Relationship Specialty Start Date End Date Diane Castillo MD PCP - General 07/31/15 documented as of this encounter
== END 2025-02-09 14:15 | disposition home or self-care (01) ==
PROVIDERS: PCP Family Medicine; Visit Provider Student in an Organized Health Care Education/Training Program
DX: N50.89 Other specified disorders of the male genital organs (principal); N50.3 Cyst of epididymis; N43.3 Hydrocele, unspecified
CPT/HCPCS: 76870; 93976

== ENCOUNTER 2025-02-28 15:44 | Outpatient (CLI) | payer MEDICARE, SELFPAY ==
--- NOTE | 2025-02-28 15:54 | ECG_ITS ---
Test Date: 2025-02-28 16:08:41 Measurements Intervals [place] Rate: 81 P: 64 WA: 172 QRS: 17 QRSD: 106 T: 56 QT: 368 QTc: 428 Interpretive Statements SINUS RHYTHM INCOMPLETE RIGHT BUNDLE BRANCH BLOCK [90+ ms QRS DURATION, TERMINAL R IN V1/V2, 40+ ms S IN I/aVL/V4/V5/V6] ABNORMAL ECG No previous ECG available for comparison Electronically Signed On 02-28-2025 17:19:53 CDT by Doyle Gerber M.D.
--- OUTSIDE RECORDS SUMMARY | 2025-02-28 16:46 | XMS_ITS | Encounter Summary ---
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 Gender Identity Not on file Sexual Orientation Straight 07/17/2020 10 :10 AM WIND SCIENCE AND PLANNING documented as of this encounter Plan of Treatment Upcoming Encounters Date Type Department Care Team (Late st Contact Info) Description 03/17/2025 7:30 AM CDT Hospital Encounter [facility] [address] [place] [phone] Peter Gurrola MD [address] [place] [address] 03/17/2025 7:30 AM CDT - 03/17/2025 8:30 AM CDT Surgery [facility] [address] [place] [phone] Peter Gurrola MD [address] [place] [address] EGD Scheduled Procedures Name Priority Associated Diagnoses [...] on filedocumented in this encounter Care Teams Body And Fender Mechanic Relationship Specialty Start Date End Date Diane Castillo MD PCP - General 07/31/15 documented as of this encounter
--- OUTSIDE RECORDS SUMMARY | 2025-02-28 16:46 | XMS_ITS | Clinical Summary ---
Author Organization [facility] Address [address] [place] [address] Care Team Providers Care Panel Instrument Repairer Name Role Phone Diane Castillo MD Primary Care Provider [phone] Allergies Active Allergy Reactions Criticality Noted Date [...] (two) weeks No particular day Active rizatriptan SUPERVISOR PHOTOENGRAVING (MAXALT-SUPERVISOR PHOTOENGRAVING) 10 mg disintegrating tabletIndications: Migraine Take 1 [...] (07/22/2021): Added automatically from request for surgery [id number] Gastric ulcer 07/22/2021 Overview (07/22/2021): Added automatically from request for surgery [id number] Prostate cancer 05/14/2021 Overview (05/14/2021): Added automatically from request for surgery [id number] Elevated PSA 04/08/2021 Overview (04/08/2021): Added automatically from request for surgery [id number] Lower urinary tract symptoms (LUTS) 09/11/2020 Kidney [...] you are waking up. This encounter's total qers-lk-litw time was greater than 30 minutes. I [...] excluded. I am now more concerned about Kings's disease than I was in the past. He is agreeable to testing. I will ask the HD clinic's social media marketing specialist to reach to arrange this test. [...] which took place via Real-time video connection ([employer], Zoom or similar). During the visit, I was located in the office and the patient was located at home in the [facility] [place]. The patient visit started at 1635 and [...] suggest this diagnosis. - The chance of Martha's disease is very low given that the [...] HADS. Mild evidence of daytime drowsiness on [place] scale. No evidence of REM Behavior Disorder [...] (07/24/2020): Added automatically from request for surgery [id number] Encounters Date Type Department Care Team Description 02/08/2025 12:40 PM CDT Office Visit [facility] ([facility]) - [facility] Medicine Urology [address] [place] [address] [place] [address] Manoj Darling IV, MD 01/12/2025 Telephone [facility] Medicine Gastroenterology 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) Not on file Not on file Not on file Obstetrics History Last Filed Vital Signs Vital Sign Reading Time Taken Comments Blood Pressure 107/69 05/11/2024 1:00 PM OVERNIGHT ASSOCIATE Pulse 84 05/11/2024 1:00 PM OVERNIGHT ASSOCIATE Temperature 36.6 C (97.9 F) 05/11/2024 1:00 PM OVERNIGHT ASSOCIATE Respiratory Rate 18 05/31/2023 12:05 PM OVERNIGHT ASSOCIATE Oxygen Saturation 97% 05/11/2024 1:00 PM OVERNIGHT ASSOCIATE Inhaled Oxygen Concentration - - Weight 75.8 kg (167 lb 1.6 oz) 05/11/2024 1:00 P M OVERNIGHT ASSOCIATE Height 172.7 cm (5' 8) 05/11/2024 1:00 PM OVERNIGHT ASSOCIATE Body Mass Index 25.41 05/11/2024 1:00 PM OVERNIGHT ASSOCIATE Plan of Treatment Upcoming Encounters Date Type Department Care Team (Late st Contact Info) Description 03/17/2025 7:30 AM CDT Hospital Encounter [facility] [address] [place] [phone] Peter Gurrola MD [address] [address] 03/17/2025 7:30 AM CDT - 03/17/2025 8:30 AM CDT Surgery [facility] [address] [place] [phone] Peter Gurrola MD [address] [address] EGD Scheduled Procedures Name Priority Associated Diagnoses [...] 09/09/2021, 08/13/2020 Medical Devices Implanted Type Area Health Services Administrator Device Identifier Shelf Expiration Date Model / Serial / Lot Vesolock [id number] Symmetry Vesolock Large Clip Internal - Sn/A - [id number] Implanted:Qty: 6 on 06/11/2021 by Manoj Darling IV, MD at [facility] Clip N/A: [employer] 03/15/2024 [id number] / N/A / [id number] Vesolock [id number] Symmetry Vesolock Large Clip Internal - Sn/A - [id number] Implanted:Qty: 3 on 06/11/2021 by Manoj Darling IV, MD at [facility] Clip N/A: [employer] 02/14/2024 [id number] / N/A / [id number] Procedures Procedure Name Priority Date/Time Associated Diagnosis [...] LAB BLOOD ORDERABLES Perri rice Result JORDY [facility] Department [place] [address] * COLONOSCOPY (09/09/2021 11:21 AM CDT) Anatomical Region Laterality Modality Other Narrative Procedure Note Peter Gurrola MD - 09/09/2021 11:21 AM CDT GI ENDOSCOPY [facility] Patient Name: Shad Viera Procedure Date: 09/09/2021 11:21 AM Date of : 1960 Admit Type: Outpatient Age: 61 Gender: Male Attending MD: Peter Gurrola M.D. Room: [facility] ENDOSCOPY ROOM 8 Note Status: Finalized [...] was passed under direct vision.The PCF [id number] endoscope was introduced through the anus and advanced to the terminal ileum. The quality of the bowel preparation was evaluatedusing the BBPS (Apex Bowel Preparation Scale) withscores of: Right Colon [...] there are any questions, please contact the server programmer. Electronically signed by Peter Gurrola MD Peter Gurrola M.D. 09/09/2021 12:07:13 PM . Number of Addenda: 0 Note Initiated On: 09/09/2021 11:21 AM Recognized by the [place] [employer] for promoting quality in endoscopy Peter Gurrola MD ENDOSCOPY PROCEDURES Final Resu lt from Last 3 Months or Most Recently Relevant to Health Maintenance Insurance [facility] MEDICARE ADVANTAGE MEDICARE [facility] CHOICE PLUS [facility] MDCR HMO REF [facility] MEDICARE ADVANTAGE Advance Directives For more information, please contact: [phone] * Full Code (Latest Code Status on File) Date Activated Date Inactivated Comments 09/09/2021 10:18 AM 09/09/2021 5:23 PM * Full Code Date Activated Date Inactivated Comments 06/11/2021 9:04 PM 06/12/2021 8:35 PM * Full Code Date Activated Date Inactivated Comments 08/13/2020 7:31 AM 08/13/2020 2:57 PM Care Teams Panel Instrument Repairer Relationship Specialty Start Date End Date Diane Castillo MD PCP - General 07/31/15
--- OUTSIDE RECORDS SUMMARY | 2025-02-28 16:46 | XMS_ITS | Clinical Summary ---
Author Organization [facility] Address [address] [place] [address] Care Team Providers Care Brake Lining Curer Name Role Phone Diane Castillo MD Primary [...] COVID-19 Vaccine ( - 2023-2 5 season) 2025 RSV Immunization or 60+ Years (1 - [...] age to complete this topic Care Teams Brake Lining Curer Relationship Specialty Start Date End Date Diane Castillo MD PCP - General 06/20/13
--- OUTSIDE RECORDS SUMMARY | 2025-02-28 16:46 | XMS_ITS | Clinical Summary ---
Author Organization [facility] Address [address] [place] [address] Care Team Providers Care Equipment Service Associate Name Role Phone Diane Castillo MD Primary Care Provider [phone] Allergies Active Allergy Reactions Criticality Noted Date [...] by inhalation Post-Proc q 6 hours. Active xbrllj-jiwsiwtw-t roxana Rivero) 36,000-114,000-18 0,000 unit capsule take [...] 09/09/2021, 09/09/2021, 08/13/2020 Colorectal Cancer Screening 09/10/2031 Medical Devices Implanted Type Area Horse Race Timer Device Identifier Shelf Expiration Date Model / Serial / Lot Implant System, Jesusosite Velma Implanted:Qty: 1 on 03/16/2020 by Dl Samayoa MD at [facility] Right: Shoulder [employer] 08/12/2021 [id number] / / [id number] Insurance [facility] [id number] RX EXPRESS SCRIPTS Express RX EXPRESS SCRIPTS Express RX MONGE PLANS (INTERNAL) [facility] Internal Plans [employer] Advance Directives For more information, please contact: [phone] * Full Code (Latest Code Status on File) Date Activated Date Inactivated Comments 02/22/2021 6:50 AM 02/22/2021 12:20 PM * Full Code Date Activated Date Inactivated Comments 03/16/2020 12:37 PM 03/16/2020 9:51 PM Care Teams Equipment Service Associate Relationship Specialty Start Date End Date Diane Castillo MD [address] [place] [phone] PCP - General Family Practice 12/19/19
--- OUTSIDE RECORDS SUMMARY | 2025-02-28 16:46 | XMS_ITS ---
Author Organization [facility] Address [address] [place] [address] Care Team Providers Care Breast Trimmer Name Role Phone Diane Castillo MD Primary Care Provider [phone] Active Problems Problem Noted Date Diagnosed Date Tubular adenoma 09/08/2024 Generalized postprandial abdominal pain 07/22/19 22 Overview (07/22/2021): Added automatically from request for surgery [id number] Gastric ulcer 07/22/2021 Overview (07/22/2021): Added automatically from request for surgery [id number] Prostate cancer 05/14/2021 Overview (05/14/2021): Added automatically from request for surgery [id number] Elevated PSA 04/08/2021 Overview (04/08/2021): Added automatically from request for surgery [id number] Lower urinary tract symptoms (LUTS) 09/11/2020 Kidney [...] you are waking up. This encounter's total yvci-zu-isxc time was greater than 30 minutes. I [...] excluded. I am now more concerned about Piatt's disease than I was in the past. He is agreeable to testing. I will ask the HD clinic's geriatric social work professor to reach to arrange this test. - [...] to you for possible genetic testing for Piatt's disease, as we discussed. - Contact my office 4 weeks after you have started tetrabenazine for an update. This was a telemedicine visit with Shad Viera alone which took place via Real-time video connection ([employer], Zoom or similar). During the visit, I [...] HADS. Mild evidence of daytime drowsiness on [place] scale. No evidence of REM Behavior Disorder [...] (07/24/2020): Added automatically from request for surgery [id number]
--- OUTSIDE RECORDS SUMMARY | 2025-02-28 16:46 | XMS_ITS | Clinical Summary ---
Author Organization [facility] Address [address] [place] [address] Care Team Providers Care Nurse Healthcare Manager Name Role Phone Unavailable Primary Care Provider Unavailabl e Source Comments [facility],non-owned Affiliates and Associated Physician Practices is amultiple site organization consisting of ambulatory clinics and hospital sitesin [place], [place] and [place]. This disclosure is being madepursuant to the Care Everywhere program and may not contain all information available regarding this patient. Last updated 18.[facility] Social History Tobacco Use Types Packs/Day Years Used Date Smoking Tobacco: Never Assessed Sex and Gender Information Value Date Recorded Sex Assigned at Not on file Legal Sex Male 5:59 AM BEADER Gender Identity Not on file Sexual Orientation Not on file Last Filed Vital Signs Vital Sign Reading Time Taken Comments Blood Pressure 111/74 05/03/2014 9:54 AM BEADER Pulse 79 05/03/2014 9:54 AM BEADER Temperature - - Respiratory Rate 16 05/03/2014 9:54 AM BEADER Oxygen Saturation - - Inhaled Oxygen Concentration - - Weight 70.8 kg (156 lb) 05/03/2014 9:54 AM BEADER Height 172.7 cm (5' 8) 05/03/2014 9:54 AM BEADER Body Mass Index 23.72 05/03/2014 9:54 AM BEADER Plan of Treatment Health Maintenance Due Date [...] 02/16/2012 ZOSTER VACCINE (1 of 2) 02/16/2012 DEPRESSION SCREENING 06/15/2024 COVID-19 VACCINE (1 - 2023-2 5 season) 2025 INFLUENZA VACCINE (#1) 2025 Respiratory Syncytial Virus [...] age to complete this topic Insurance MEDICARE [facility]
== END 2025-02-28 15:45 | disposition home or self-care (01) ==
LOC: ANHCARD 15:46
PROVIDERS: PCP Family Medicine; Visit Provider Student in an Organized Health Care Education/Training Program
DX: R07.9 Chest pain, unspecified (principal); I45.10 Unspecified right bundle-branch block; R94.31 Abnormal electrocardiogram [ECG] [EKG]
CPT/HCPCS: 93005

== ENCOUNTER 2025-03-02 09:56 | Emergency (ER) | payer MEDICARE, SELFPAY ==
--- NOTE | ~2025-03-02 | XR_ITS ---
Examination: XR chest 2V Clinical History: chest pain Comparison: 11/20/2019 Technique: PA and Lateral Findings: Cardiomediastinal silhouette normal size and configuration. Lungs clear. No acute bony abnormality. IMPRESSION: 1. No acute cardiopulmonary findings. Reviewed, dictated and finalized at location R.
[2025-03-02 10:05] VITALS: BP 104/87; PULSE 77; RESP 18; TEMP 36.4; O2SAT 100
--- NOTE | 2025-03-02 10:09 | ECG_ITS ---
Test Date: 2025-03-02 10:10:25 Measurements Intervals [place] Rate: 69 P: 62 MS: 164 QRS: 8 QRSD: 109 T: 63 QT: 385 QTc: 415 Interpretive Statements SINUS RHYTHM INCOMPLETE RIGHT BUNDLE BRANCH BLOCK [90+ ms QRS DURATION, TERMINAL R IN V1/V2, 40+ ms S IN I/aVL/V4/V5/V6] ABNORMAL ECG Compared to ECG 02/28/2025 16:08:41 No significant changes Electronically Signed On 03-02-2025 12:34:35 CDT by Doyle Gerber M.D.
[2025-03-02 10:25] VITALS: BP 123/90; PULSE 72; RESP 16; TEMP 36.8; O2SAT 100
[2025-03-02 10:29] VITALS: O2SAT 100
--- OUTSIDE RECORDS SUMMARY | 2025-03-02 10:31 | XMS_ITS | Clinical Summary ---
Author Organization [facility] Address [address] [place] [address] Care Team Providers Care Behavioral Scientist Name Role Phone Diane Castillo MD Primary Care Provider [phone] Social History Tobacco Use Types Packs/Day Years [...] age to complete this topic Care Teams Behavioral Scientist Relationship Specialty Start Date End Date Diane Castillo MD PCP - General 06/20/13
--- OUTSIDE RECORDS SUMMARY | 2025-03-02 10:31 | XMS_ITS | Encounter Summary ---
Author Organization [facility] Address [address] [place] [address] Phone Care Team Providers Care Air Moving Technician Name Role Phone Diane Castillo MD Primary Care Provider [phone] Encounter Details Date Type Department Care Team [...] on file Legal Sex Male 11:30 PM CLINICAL PROGRAMMER Gender Identity Not on file Sexual Orientation Straight 07/17/2020 10 :10 AM CLINICAL PROGRAMMER documented as of this encounter Plan of Treatment Upcoming Encounters Date Type Department Care Team (Late st Contact Info) Description 03/17/2025 7:30 AM CDT Hospital Encounter [facility] [address] [place] [phone] Peter Gurrola MD [address] [place] [address] 03/17/2025 7:30 AM CDT - 03/17/2025 8:30 AM CDT Surgery [facility] [address] [place] [phone] Peter Gurrola MD [address] [place] [address] EGD Scheduled Procedures Name Priority Associated Diagnoses [...] filedocumented in this encounter Care Teams Air Moving Technician Relationship Specialty Start Date End Date Diane Castillo MD PCP - General 07/31/15 documented as of this encounter
--- OUTSIDE RECORDS SUMMARY | 2025-03-02 10:31 | XMS_ITS | Clinical Summary ---
Author Organization [facility] Address [address] [place] [address] Care Team Providers Care Corporate Strategy Associate Name Role Phone Unavailable Primary Care Provider Unavailabl e Source Comments [facility] [employer],non-owned Affiliates and Associated Physician Practices is amultiple site organization consisting of ambulatory clinics and hospital sitesin [place], [place], [place] and [place]. This disclosure is being madepursuant to the Care Everywhere program and may not contain all information available regarding this patient. Last updated 18.[facility] [employer] Social History Tobacco Use Types Packs/Day Years Used Date Smoking Tobacco: Never Assessed Sex and Gender Information Value Date Recorded Sex Assigned at Not on file Legal Sex Male 5:59 AM PHOTOGRAPHIC DEVELOPER AND PRINTER Gender Identity Not on file Sexual Orientation Not on file Last Filed Vital Signs Vital Sign Reading Time Taken Comments Blood Pressure 111/74 05/03/2014 9:54 AM PHOTOGRAPHIC DEVELOPER AND PRINTER Pulse 79 05/03/2014 9:54 AM PHOTOGRAPHIC DEVELOPER AND PRINTER Temperature - - Respiratory Rate 16 05/03/2014 9:54 AM PHOTOGRAPHIC DEVELOPER AND PRINTER Oxygen Saturation - - Inhaled Oxygen Concentration - - Weight 70.8 kg (156 lb) 05/03/2014 9:54 AM PHOTOGRAPHIC DEVELOPER AND PRINTER Height 172.7 cm (5' 8) 05/03/2014 9:54 AM PHOTOGRAPHIC DEVELOPER AND PRINTER Body Mass Index 23.72 05/03/2014 9:54 AM PHOTOGRAPHIC DEVELOPER AND PRINTER Plan of Treatment Health Maintenance Due Date [...] to complete this topic Insurance MEDICARE [facility]
--- OUTSIDE RECORDS SUMMARY | 2025-03-02 10:31 | XMS_ITS | Clinical Summary ---
Author Organization [facility] Address [address] [place] [address] Care Team Providers Care Human Resources Benefits Specialist Name Role Phone Diane Castillo MD Primary Care Provider [phone] Allergies Active Allergy Reactions Criticality Noted Date [...] by inhalation Post-Proc q 6 hours. Active ebwikv-drtpktgc-x roxana Rivero) 36,000-114,000-18 0,000 unit capsule take [...] Screening 09/10/2031 Medical Devices Implanted Type Area Protection Analyst Device Identifier Shelf Expiration Date Model / Serial / Lot Implant System, Jesusosite Velma Implanted:Qty: 1 on 03/16/2020 by Dl Samayoa MD at [facility] Right: Shoulder [employer] 08/12/2021 [id number] / / [id number] Insurance [facility] [id number] RX EXPRESS SCRIPTS Express RX EXPRESS SCRIPTS Express RX MONGE PLANS (INTERNAL) [facility] Internal Plans [employer] Advance Directives For more information, please contact: [phone] * Full Code (Latest Code Status on File) Date Activated Date Inactivated Comments 02/22/2021 6:50 AM 02/22/2021 12:20 PM * Full Code Date Activated Date Inactivated Comments 03/16/2020 12:37 PM 03/16/2020 9:51 PM Care Teams Human Resources Benefits Specialist Relationship Specialty Start Date End Date Diane Castillo MD [address] [place] [phone] PCP - General Family Practice 12/19/19
--- OUTSIDE RECORDS SUMMARY | 2025-03-02 10:32 | XMS_ITS ---
Author Organization [facility] Address [address] [place] [address] Care Team Providers Care Pole Sander Operator Name Role Phone Diane Castillo MD Primary Care Provider [phone] Active Problems Problem Noted Date Diagnosed Date Tubular adenoma 09/08/2024 Generalized postprandial abdominal pain 07/22/19 22 Overview (07/22/2021): Added automatically from request for surgery [id number] Gastric ulcer 07/22/2021 Overview (07/22/2021): Added automatically from request for surgery [id number] Prostate cancer 05/14/2021 Overview (05/14/2021): Added automatically from request for surgery [id number] Elevated PSA 04/08/2021 Overview (04/08/2021): Added automatically from request for surgery [id number] Lower urinary tract symptoms (LUTS) 09/11/2020 Kidney [...] you are waking up. This encounter's total htet-xa-umxp time was greater than 30 minutes. I [...] excluded. I am now more concerned about Story's disease than I was in the past. He is agreeable to testing. I will ask the HD clinic's outreach and education social worker to reach to arrange this test. - [...] to you for possible genetic testing for Story's disease, as we discussed. - Contact my office 4 weeks after you have started tetrabenazine for an update. This was a telemedicine visit with Shad Viera alone which took place via Real-time video connection ([employer], Zoom or similar). During the visit, I was located in the office and the patient was located at home in the state [facility]. The patient visit started at [...] HADS. Mild evidence of daytime drowsiness on [place] scale. No evidence of REM Behavior Disorder [...] (07/24/2020): Added automatically from request for surgery [id number]
--- OUTSIDE RECORDS SUMMARY | 2025-03-02 10:32 | XMS_ITS | Clinical Summary ---
Author Organization [facility] Address [address] [place] [address] Care Team Providers Care Decorating And Assembly Supervisor Name Role Phone Diane Castillo MD Primary Care Provider [phone] Allergies Active Allergy Reactions Criticality Noted Date [...] (two) weeks No particular day Active rizatriptan MATERIALS RESEARCH ENGINEER (MAXALT-MATERIALS RESEARCH ENGINEER) 10 mg disintegrating tabletIndications: Migraine Take 1 [...] (07/22/2021): Added automatically from request for surgery [id number] Gastric ulcer 07/22/2021 Overview (07/22/2021): Added automatically from request for surgery [id number] Prostate cancer 05/14/2021 Overview (05/14/2021): Added automatically from request for surgery [id number] Elevated PSA 04/08/2021 Overview (04/08/2021): Added automatically from request for surgery [id number] Lower urinary tract symptoms (LUTS) 09/11/2020 Kidney [...] you are waking up. This encounter's total cigi-nl-ruia time was greater than 30 minutes. I [...] excluded. I am now more concerned about [place]'s disease than I was in the past. He is agreeable to testing. I will ask the HD clinic's high school social science teacher to reach to arrange this test. - [...] which took place via Real-time video connection ([employer], Zoom or similar). During the visit, I was located in the office and the patient was located at home in the [facility] [place]. The patient visit started at 1635 and [...] HADS. Mild evidence of daytime drowsiness on [place] scale. No evidence of REM Behavior Disorder [...] (07/24/2020): Added automatically from request for surgery [id number] Encounters Date Type Department Care Team Description 02/08/2025 12:40 PM CDT Office Visit [facility] ([facility]) - [facility] Urology [address] [place] [address] [place] [address] Manoj Darling IV, MD 01/12/2025 Telephone [facility] Gastroenterology [address] [place] [address] [place] [address] Diane Andrade Follow-up; GI-procedure scheduling from Last [...] on file Legal Sex Male 11:30 PM PATIENT SUPPORT ASSISTANT Gender Identity Not on file Sexual Orientation Straight 07/17/2020 10 :10 AM PATIENT SUPPORT ASSISTANT 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 Start 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 Job End Date [email or web address]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) Not on file Not on file Not on file Obstetrics History Last Filed Vital Signs Vital Sign Reading Time Taken Comments Blood Pressure 107/69 05/11/2024 1:00 PM PATIENT SUPPORT ASSISTANT Pulse 84 05/11/2024 1:00 PM PATIENT SUPPORT ASSISTANT Temperature 36.6 C (97.9 F) 05/11/2024 1:00 PM PATIENT SUPPORT ASSISTANT Respiratory Rate 18 05/31/2023 12:05 PM PATIENT SUPPORT ASSISTANT Oxygen Saturation 97% 05/11/2024 1:00 PM PATIENT SUPPORT ASSISTANT Inhaled Oxygen Concentration - - Weight 75.8 kg (167 lb 1.6 oz) 05/11/2024 1:00 P M PATIENT SUPPORT ASSISTANT Height 172.7 cm (5' 8) 05/11/2024 1:00 PM PATIENT SUPPORT ASSISTANT Body Mass Index 25.41 05/11/2024 1:00 PM PATIENT SUPPORT ASSISTANT Plan of Treatment Upcoming Encounters Date Type Department Care Team (Late st Contact Info) Description 03/17/2025 7:30 AM CDT Hospital Encounter [facility] [address] [place] [phone] Peter Gurrola MD [address] [address] 03/17/2025 7:30 AM CDT - 03/17/2025 8:30 AM CDT Surgery [facility] [address] [place] [phone] Peter Gurrola MD [address] [address] EGD Scheduled Procedures Name Priority Associated Diagnoses [...] 09/09/2021, 08/13/2020 Medical Devices Implanted Type Area Head Wood Grinder Device Identifier Shelf Expiration Date Model / Serial / Lot Vesolock [id number] Symmetry Vesolock Large Clip Internal - Sn/A - [id number] Implanted:Qty: 6 on 06/11/2021 by Manoj Darling IV, MD at [facility] Clip N/A: [employer] 03/15/2024 [id number] / N/A / [id number] Vesolock [id number] Symmetry Vesolock Large Clip Internal - Sn/A - [id number] Implanted:Qty: 3 on 06/11/2021 by Manoj Darling IV, MD at [facility] Clip N/A: [employer] 02/14/2024 [id number] / N/A / [id number] Procedures Procedure Name Priority Date/Time Associated Diagnosis [...] LAB BLOOD ORDERABLES Perri rice Result [facility] Department [place] [address] * COLONOSCOPY (09/09/2021 11:21 AM CDT) Anatomical Region Laterality Modality Other Narrative Procedure Note Peter Gurrola MD - 09/09/2021 11:21 AM CDT [facility] ENDOSCOPY [facility] Patient Name: Shad Viera Procedure Date: 09/09/2021 11:21 AM Date of : 1960 Admit Type: Outpatient Age: 61 Gender: Male Attending MD: Peter Gurrola M.D. Room: [facility] ENDOSCOPY ROOM 8 Note Status: Finalized [...] was passed under direct vision.The PCF [id number] endoscope was introduced through the anus and advanced to the terminal ileum. The quality of the bowel preparation was evaluatedusing the BBPS ([place] Bowel Preparation Scale) withscores of: Right Colon [...] there are any questions, please contact the manager talent acquisition. Electronically signed by Peter Gurrola MD Peter Gurrola M.D. 09/09/2021 12:07:13 PM . Number of Addenda: 0 Note Initiated On: 09/09/2021 11:21 AM Recognized by the [place] [employer] for promoting quality in endoscopy Peter Gurrola MD ENDOSCOPY PROCEDURES Final Resu lt from Last 3 Months or Most Recently Relevant to Health Maintenance Insurance [facility] MEDICARE ADVANTAGE [facility]IC[facility] Address: [facility] [address] [place] [address] MEDICARE [facility] CHOICE PLUS [facility] HMO/PPO Address: [facility] [address] [place] [address] [facility] MDCR HMO REF [facility] MEDICARE ADVANTAGE Advance Directives For more information, please contact: [phone] * Full Code (Latest Code Status on File) Date Activated Date Inactivated Comments 09/09/2021 10:18 AM 09/09/2021 5:23 PM * Full Code Date Activated Date Inactivated Comments 06/11/2021 9:04 PM 06/12/2021 8:35 PM * Full Code Date Activated Date Inactivated Comments 08/13/2020 7:31 AM 08/13/2020 2:57 PM Care Teams Decorating And Assembly Supervisor Relationship Specialty Start Date End Date Diane Castillo MD PCP - General 07/31/15
--- OUTSIDE RECORDS SUMMARY | 2025-03-02 10:32 | XMS_ITS | Patient Health Record ---
Author Organization [facility] Address [address] [place] [address] Support Name Relationship Address Phone Maximiliano Shad Guarantor Unknown [phone] Reason For Referral No Information Plan Of Treatment No Information Insurance Providers Payer Name Payer Address Payer Phone Subscriber Number Group Number Insured Name Patient Relationship to Insured Coverage Start Date Coverage End Date [place] Medicare [address] [place], [place] [id number] Shad Viera Self - patient is the insured [facility] [address] [place], [place] [id number] Penny Viera Self - patient is the insured [place] [address] [address] [place], [place] [id number] Viera Shad Self - patient is the insured Medical (General) History Surgical History Surgery Date(Month/Year) Cholecystectomy:2004 Appendectomy Ercp duct stent placement ([id number]):ERCP 12/10/[address] 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 Morphologic changes of the pancreatic duct of unclear clinical significance. Dual-duct protective stenting was perfo 12/10/2014 Ercp duct stent placement ([id number]) 2014 Egd/endoscopy:Ahmed Gastritis. Path-- duodenal bx neg. Mild reactive gastropathy, neg for H. pylori. 03/05/2017
--- NOTE | 2025-03-02 10:36 | ED.GENADULT ---
HPI - General Adult General Chief complaint: Chest Pain Stated complaint: chest pain Time Seen by Provider: 03/02/25 10:03 History of Present Illness HPI narrative: 65-year-old male presents emergency department for evaluation for left-sided chest wall pain. Patient reports he has had short electric type shooting pains that radiate from his left neck into his left shoulder into his chest. Patient states pain has been ongoing for the last 1.5 weeks. Patient did have outpatient follow-up with his primary care physician an EKG was ordered. Patient does report prior history of a nuclear stress test but denies any prior history of [place] denies any cardiac stents. Related Data Home Medications ?Medication ?Instructions ?Recorded ?Confirmed ?Last Taken ?Type famotidine 20 mg tablet 40 mg PO BID 04/29/19 02/28/25 07/15/23 History xyflud-rhfunfyb-gyrgaec 1 cap PO QID 04/29/19 02/28/25 07/15/23 History 12,000-38,000-60,000 unit capsule,delayed rel (Creon) amlodipine 10 mg tablet 10 mg PO DAILY 06/17/23 02/28/25 07/15/23 History hydrochlorothiazide 25 mg tablet 37.5 mg PO DAILY 07/06/23 02/28/25 Unknown History tiotropium 2.5 mcg-olodaterol 2.5 2 puff inhalation DAILY 02/28/25 02/28/25 Unknown History mcg/actuation mist for inhalation (Stiolto Respimat) Allergies Allergy/AdvReac Type Severity Reaction Status Date / Time hydromorphone Allergy Unknown unknown Verified 03/02/25 10:05 ketamine Allergy Unknown Hallucinati Verified 03/02/25 10:05 ng morphine Allergy Unknown unknown Verified 03/02/25 10:05 adhesive tape Allergy Blister Verified 03/02/25 10:05 hydrocodone Allergy Unknown Verified 03/02/25 10:05 Review of Systems Review of Systems: All systems reviewed & are unremarkable except as noted in HPI and below PMFSH Past Medical History Medical History Burning with urination Thayer disease Lumbar spondylosis Tear of right biceps muscle surgical repair Mar 2020 Chronic abdominal pain Chorea Centrilobular emphysema Cervical radicular pain Chronic pancreatitis FH: CAD (coronary artery disease) Gastric ulcer, unspecified as acute or chronic, without hemorrhage or perforation History of COPD Hyperlipidemia Lumbar radiculopathy Migraine without status migrainosus, not intractable Movement disorder Peripheral vascular disease Sleep apnea Tobacco abuse Tremor Vitamin B deficiency, unspecified Vitamin D deficiency Surgical History Surgical History H/O eye surgery Hx of appendectomy Hx of cholecystectomy H/O elbow surgery History of carpal tunnel surgery Previous back surgery History of gastric surgery Family History Family History Mother Family history of hepatitis Family history of malignant neoplasm Grandparent Diabetes mellitus Social History Social History Smoking packs per day: 1 Smoking cigarettes per day: 20.0 Years smoked: 45 Smoking pack-years: 45.00 Smoking status: Current every day smoker (1 pack per day) Tobacco type: cigarettes Second hand tobacco smoke exposure: Yes Alcohol intake: current Alcohol use details: RARE Substance use: former Substance use type: does not use Lack of Transportation: No Lack of Food: Never True Current Housing: I Have Housing Concerned About Future Housing: No Difficulty Paying Gas/Electric Bills: YES Difficulty Paying for Meds: No Currently Unemployed: No Education: High School Diploma/GED Difficulty w/ Childcare or Family Care: No Living arrangements: with family Occupation/Education: retired Gender identity (if verbalized by the patient): Male Sexual Orientation (if Verbalized by the Patient): Straight or Heterosexual Spiritual care concerns: No Agree to blood products: Yes Exam Narrative: APPEARANCE: Well appearing, no pain, no distress, well-nourished. HEAD: normocephalic, atraumatic. EYES: PERRLA/EOMI, conjunctivae clear. NOSE: Normal no drainage EARS:TMS clear with good light reflex. THROAT: Pharynx clear, no exudate. NECK: Supple. No adenopathy, no masses. RESPIRATORY: Airway patent, respirations nonlabored. Clear to auscultation bilaterally, no rales, rhonchi, wheezing. CARDIOVASCULAR: Regular rate and rhythm without murmurs rubs or gallops. ABDOMINAL: Soft, nontender, nondistended, normal bowel sounds MUSCULOSKELETAL: Moves all extremities. Strength/ROM intact, No edema, No calf tenderness. NEURO: Alert. Cranial nerves II through XII intact. Good gait. Good coordination SKIN: Warm, dry. Normal Color Course Vital Signs Vital signs: Vital Signs Temperature 97.5 F L 03/02/25 10:05 Pulse Rate 77 03/02/25 10:05 Respiratory Rate 18 03/02/25 10:05 Blood Pressure 104/87 03/02/25 10:05 Pulse Oximetry 100 03/02/25 10:05 Oxygen Delivery Room Air 03/02/25 10:05 Temperature 98.2 F 03/02/25 10:25 Pulse Rate 61 03/02/25 14:20 Respiratory Rate 12 03/02/25 14:20 Blood Pressure 109/69 03/02/25 14:20 Pulse Oximetry 100 03/02/25 14:20 Oxygen Delivery Room Air 03/02/25 10:29 Medical Decision Making MDM Narrative Medical decision making narrative: 65-year-old male presents emergency department for evaluation for intermittent left-sided electric shock of chest pain radiating to his left shoulder from his neck. Patient is currently afebrile with no leukocytosis hemoglobin 15.4. Patient has an INR of 1.0 and a D-dimer that is not elevated. Patient had negative serial troponins no acute abnormalities on his CMP chest x-ray shows no acute cardiopulmonary abnormality. Patient was up the results of the workup. Low concern for ACS. Patient will have close follow-up with his primary care physician for additional outpatient testing. Differential Diagnosis Differential Diagnosis: Cervical radiculopathy, ACS, angina, pulmonary embolism, chest pain, pleurisy Vital Signs Vital Signs: Vital Signs Temperature 97.5 F L 03/02/25 10:05 Pulse Rate 77 03/02/25 10:05 Respiratory Rate 18 03/02/25 10:05 Blood Pressure 104/87 03/02/25 10:05 Pulse Oximetry 100 03/02/25 10:05 Oxygen Delivery Room Air 03/02/25 10:05 Temperature 98.2 F 03/02/25 10:25 Pulse Rate 61 03/02/25 14:20 Respiratory Rate 12 03/02/25 14:20 Blood Pressure 109/69 03/02/25 14:20 Pulse Oximetry 100 03/02/25 14:20 Oxygen Delivery Room Air 03/02/25 10:29 Lab Data Lab results reviewed: Yes I reviewed the patient's lab results. 03/02/25 10:23 03/02/25 10:23 Labs: Lab Results 03/02/25 03/02/25 Range/Units 10:23 13:23 WBC 8.7 (4.5-10.0) K/mm3 RBC 4.78 (4.6-6.20) M/mm3 Hgb 15.4 (14.0-18.0) g/dL Hct 45.9 (42.0-52.0) % MCV 96.0 (80-100) fl MCH 32.2 (26-34) pg MCHC 33.6 (32-36) g/dl RDW 13.0 (11.5-14.5) % Plt Count 342 (150-375) k/mm3 MPV 9.8 (7.4-10.4) fl Immature Gran % (Auto) 0.6 H (0-0.5) % Neut % (Auto) 69.2 (45.5-73.1) % Lymph % (Auto) 18.4 (18.3-44.2) % Pratt % (Auto) 8.7 H (2.6-8.5) % Eos % (Auto) 2.2 (0-4.4) % Baso % (Auto) 0.9 (0.2-1.2) % Lymph # (Auto) 1.60 (0.9-3.2) K/mm3 Pratt # (Auto) 0.8 H (0.1-0.6) K/mm3 Eos # (Auto) 0.2 (0-0.3) K/mm3 Baso # (Auto) 0.1 (0.0-0.1) K/mm3 Abs Immat Gran (auto) 0.05 H (0.00-0.031) K/mm3 Absolute Neuts (auto) 6.0 (1.3-6.7) K/mm3 Absolute Nucleated RBC 0.000 (0.0-0.012) K/mm3 Nucleated RBC % 0.0 (0.0-0.2) % PT 13.6 (11.1-14.7) Seconds INR 1.0 APTT 28.4 (22.3-36.8) Seconds D-Dimer 0.32 (<0.48) ug/mL Sodium 138 (137-145) mmol/L Potassium 3.7 (3.4-5.0) mmol/L Chloride 106 (98-107) mmol/L Carbon Dioxide 28 (22-30) mmol/L Anion Gap 4 (4-12) mmol/L BUN 17 (9-20) mg/dL Creatinine 1.16 (0.7-1.3) mg/dL Estim Creat Clear Calc 56 ml/min Estimated GFR > 60 (59 - ) Glucose 94 (65-110) mg/dL Calcium 9.5 (8.4-10.2) mg/dL Total Bilirubin 0.7 (0.2-1.3) mg/dL AST 24 (17-59) U/L ALT 16 (6-50) U/L Alkaline Phosphatase 97 (38-126) U/L Troponin I < 0.012 < 0.012 (0.000-0.034) ng/mL Total Protein 7.4 (6.3-8.2) g/dL Albumin 4.5 (3.5-5.1) g/dL Lipase 62 (23-300) U/L Imaging Data Radiologist's impression: Impressions Chest X-Ray 03/02/25 10:36 IMPRESSION: 1. No acute cardiopulmonary findings. Discharge Plan Discharge Clinical Impression: Cervical radiculopathy, Atypical chest pain Patient Disposition: Home Condition: Stable Instructions: Antibiotic Form, Chest Pain (ED) Additional Instructions: Have close follow-up with your primary care physician for additional outpatient cardiac testing. Patient Language: Sinhala Prescriptions: No Action meclizine 25 mg tablet 25 mg PO BID PRN (Reason: dizziness) Qty: 60 1RF solifenacin [Vesicare] 5 mg tablet 5 mg PO DAILY Qty: 30 0RF Stiolto Respimat 2.5-2.5 mcg/actuation mist 2 puff inhalation DAILY tramadol 50 mg tablet 50 mg PO Q6H PRN (Reason: pain) 7 Days Qty: 28 0RF famotidine 20 mg tablet 40 mg PO BID Creon 12,000-38,000 -60,000 unit capsule,delayed release(DR/EC) 1 cap PO QID amlodipine 10 mg tablet 10 mg PO DAILY (DME) Nebulizer resevoir, nebulizer mouth piece See Rx Instructions .Route .MEDSUPPLY Qty: 1 0RF Rx Instructions: As directed levofloxacin 500 mg tablet 500 mg PO DAILY Qty: 10 0RF clobetasol 0.05 % cream 1 applic TOPICAL DAILY Qty: 60 1RF ergocalciferol (vitamin D2) 1,250 mcg (50,000 unit) capsule 50,000 unit PO WEEKLY Qty: 12 6RF hydrochlorothiazide 25 mg tablet 37.5 mg PO DAILY Patient Comments: Pt states hasn't started this yet tizanidine 4 mg capsule 4 mg PO TID PRN (Reason: muscle spasticity) Qty: 60 0RF albuterol sulfate 0.63 mg/3 mL solution for nebulization 0.63 mg inhalation Q4-6H PRN (Reason: shortness of breath or wheezing) Qty: 75 1RF rizatriptan 10 mg tablet,disintegrating See Rx Instructions PO .COMPLEX Qty: 10 8RF Rx Instructions: take 1 tab at onset of headache; if no relief may repeat 1 tab after at least 2 hrs; max = 3 tabs/24 hr PO dicyclomine 20 mg tablet 20 mg PO QID PRN (Reason: abdominal pain) Qty: 100 0RF omeprazole 10 mg capsule,delayed release(DR/EC) 10 mg PO BID Qty: 180 0RF Follow-up/Referrals: Diane Castillo MD [Primary Care Provider, Family Practice] Quality HEART score for chest pain patients History: slightly suspicious ECG: normal Age: > 45 and < 65 years Risk factors: 1 or 2 risk factors Troponin: < or = to 1x normal limit Heart score: 2
--- OUTSIDE RECORDS SUMMARY | 2025-03-02 10:53 | XMS_ITS ---
Author Organization [facility] Address [address] [place] [address] Care Team Providers Care Act English Tutor Name Role Phone Diane Castillo MD Primary Care Provider [phone] Active Problems Problem Noted Date Diagnosed Date Tubular adenoma 09/08/2024 Generalized postprandial abdominal pain 07/22/19 22 Overview (07/22/2021): Added automatically from request for surgery [id number] Gastric ulcer 07/22/2021 Overview (07/22/2021): Added automatically from request for surgery [id number] Prostate cancer 05/14/2021 Overview (05/14/2021): Added automatically from request for surgery [id number] Elevated PSA 04/08/2021 Overview (04/08/2021): Added automatically from request for surgery [id number] Lower urinary tract symptoms (LUTS) 09/11/2020 Kidney [...] you are waking up. This encounter's total rgts-vr-qnmj time was greater than 30 minutes. I [...] excluded. I am now more concerned about [place]'s disease than I was in the past. He is agreeable to testing. I will ask the HD clinic's psych social worker to reach to arrange this [...] to you for possible genetic testing for [place]'s disease, as we discussed. - Contact my office 4 weeks after you have started tetrabenazine for an update. This was a telemedicine visit with Shad Viera alone which took place via Real-time video connection ([employer], Zoom or similar). During the visit, I was located in the office and the patient was located at home in the state [facility]. The patient visit started at 1635 and [...] HADS. Mild evidence of daytime drowsiness on [place] scale. No evidence of REM Behavior Disorder [...] (07/24/2020): Added automatically from request for surgery [id number]
--- OUTSIDE RECORDS SUMMARY | 2025-03-02 10:53 | XMS_ITS | Clinical Summary ---
Author Organization [facility] Address [address] [place] [address] Care Team Providers Care Linoleum Printer Name Role Phone Dinae Castillo MD Primary Care Provider [phone] Allergies Active Allergy Reactions Criticality Noted Date [...] by inhalation Post-Proc q 6 hours. Active apzvgz-tewdzazp-e roxana Rivero) 36,000-114,000-18 0,000 unit capsule take [...] Screening 09/10/2031 Medical Devices Implanted Type Area [employer]ire Cord Device Identifier Shelf Expiration Date Model / Serial / Lot Implant System, Jesusosite Velma Implanted:Qty: 1 on 03/16/2020 by Dl Samayoa MD at [facility] [place] Right: Shoulder [employer] 08/12/2021 [id number] / / [id number] Insurance [facility] [id number] RX EXPRESS SCRIPTS Express RX EXPRESS SCRIPTS Express RX [employer] PLANS (INTERNAL) [facility] Internal Plans [employer] Advance Directives For more information, please contact: [phone] * Full Code (Latest Code Status on File) Date Activated Date Inactivated Comments 02/22/2021 6:50 AM 02/22/2021 12:20 PM * Full Code Date Activated Date Inactivated Comments 03/16/2020 12:37 PM 03/16/2020 9:51 PM Care Teams Linoleum Printer Relationship Specialty Start Date End Date Diane Castillo MD [address] [place] [id number] PCP - General Family Practice 12/19/19
--- OUTSIDE RECORDS SUMMARY | 2025-03-02 10:53 | XMS_ITS | Clinical Summary ---
Author Organization [facility] Address [address] [place] [address] Care Team Providers Care Surgery Specialist Name Role Phone Diane Castillo MD Primary Care Provider [phone] Social History Tobacco Use Types Packs/Day Years [...] age to complete this topic Care Teams Surgery Specialist Relationship Specialty Start Date End Date Diane Castillo MD PCP - General 06/20/13
--- OUTSIDE RECORDS SUMMARY | 2025-03-02 10:53 | XMS_ITS | Clinical Summary ---
Author Organization [facility] Address [address] [place] [address] Care Team Providers Care Spindle Frame Carver Name Role Phone Unavailable Primary Care Provider Unavailabl e Source Comments [facility],non-owned Affiliates and Associated Physician Practices is amultiple site organization consisting of ambulatory clinics and hospital sitesin [place], [place]. This disclosure is being madepursuant to the Care Everywhere program and may not contain all information available regarding this patient. Last updated 18.[facility] Social History Tobacco Use Types Packs/Day Years Used Date Smoking Tobacco: Never Assessed Sex and Gender Information Value Date Recorded Sex Assigned at Not on file Legal Sex Male 5:59 AM MANAGER UTILIZATION Gender Identity Not on file Sexual Orientation Not on file Last Filed Vital Signs Vital Sign Reading Time Taken Comments Blood Pressure 111/74 05/03/2014 9:54 AM MANAGER UTILIZATION Pulse 79 05/03/2014 9:54 AM MANAGER UTILIZATION Temperature - - Respiratory Rate 16 05/03/2014 9:54 AM MANAGER UTILIZATION Oxygen Saturation - - Inhaled Oxygen Concentration - - Weight 70.8 kg (156 lb) 05/03/2014 9:54 AM MANAGER UTILIZATION Height 172.7 cm (5' 8) 05/03/2014 9:54 AM MANAGER UTILIZATION Body Mass Index 23.72 05/03/2014 9:54 AM MANAGER UTILIZATION Plan of Treatment Health Maintenance Due Date [...] age to complete this topic Insurance MEDICARE [employer]
--- OUTSIDE RECORDS SUMMARY | 2025-03-02 10:53 | XMS_ITS | Encounter Summary ---
Author Organization [facility] Address [address] [place] [address] Phone Care Team Providers Care Manager Employee Benefits Name Role Phone Diane Castillo MD Primary Care Provider [phone] Encounter Details Date Type Department Care Team [...] on file Legal Sex Male 11:30 PM MANAGER SHELL Gender Identity Not on file Sexual Orientation Straight 07/17/2020 10 :10 AM MANAGER SHELL documented as of this encounter Plan of Treatment Upcoming Encounters Date Type Department Care Team (Late st Contact Info) Description 03/17/2025 7:30 AM CDT Hospital Encounter [facility] [address] [place] [phone] Peter Gurrola MD [address] [place] [address] 03/17/2025 7:30 AM CDT - 03/17/2025 8:30 AM CDT Surgery [facility] [address] [place] [phone] Peter Gurrola MD [address] [place] [address] EGD Scheduled Procedures Name Priority Associated Diagnoses [...] filedocumented in this encounter Care Teams Manager Employee Benefits Relationship Specialty Start Date End Date Diane Castillo MD PCP - General 07/31/15 documented as of this encounter
--- OUTSIDE RECORDS SUMMARY | 2025-03-02 10:54 | XMS_ITS | Clinical Summary ---
Author Organization [facility] Address [address] [place] [address] Care Team Providers Care Lumber Material Handler Name Role Phone Diane Castillo MD Primary Care Provider Allergies Active Allergy Reactions Criticality Noted Date [...] (two) weeks No particular day Active rizatriptan BENCH MOLDER (MAXALT-BENCH MOLDER) 10 mg disintegrating tabletIndications: Migraine Take 1 [...] (07/22/2021): Added automatically from request for surgery [id number] Gastric ulcer 07/22/2021 Overview (07/22/2021): Added automatically from request for surgery [id number] Prostate cancer 05/14/2021 Overview (05/14/2021): Added automatically from request for surgery [id number] Elevated PSA 04/08/2021 Overview (04/08/2021): Added automatically from request for surgery [id number] Lower urinary tract symptoms (LUTS) 09/11/2020 Kidney [...] you are waking up. This encounter's total pfur-si-hywg time was greater than 30 minutes. I [...] excluded. I am now more concerned about Williamson's disease than I was in the past. He is agreeable to testing. I will ask the HD clinic's social worker masters to reach to arrange this test. - [...] which took place via Real-time video connection (AutoGnomicsuch, Zoom or similar). During the visit, I was located in the office and the patient was located at home in the [facility] [place]. The patient visit started at 1635 and [...] HADS. Mild evidence of daytime drowsiness on [place] scale. No evidence of REM Behavior Disorder [...] (07/24/2020): Added automatically from request for surgery [id number] Encounters Date Type Department Care Team Description 02/08/2025 12:40 PM CDT Office Visit [facility] ([facility]) - [facility] Medicine Urology [address] [place] [address] [place] [address] Manoj Darling IV, MD 01/12/2025 Telephone [facility] Medicine Gastroenterology [address] 12[address] [place] [address] [place] [address] Diane Andrade Follow-up; GI-procedure scheduling from Last [...] on file Legal Sex Male 11:30 PM PHYSICAL THERAPIST ASSISTANT Gender Identity Not on file Sexual Orientation Straight 07/17/2020 10 :10 AM PHYSICAL THERAPIST ASSISTANT 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 Start Date Job End Date [employer]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) Not on file Not on file Not on file Obstetrics History Last Filed Vital Signs Vital Sign Reading Time Taken Comments Blood Pressure 107/69 05/11/2024 1:00 PM PHYSICAL THERAPIST ASSISTANT Pulse 84 05/11/2024 1:00 PM PHYSICAL THERAPIST ASSISTANT Temperature 36.6 C (97.9 F) 05/11/2024 1:00 PM PHYSICAL THERAPIST ASSISTANT Respiratory Rate 18 05/31/2023 12:05 PM PHYSICAL THERAPIST ASSISTANT Oxygen Saturation 97% 05/11/2024 1:00 PM PHYSICAL THERAPIST ASSISTANT Inhaled Oxygen Concentration - - Weight 75.8 kg (167 lb 1.6 oz) 05/11/2024 1:00 P M PHYSICAL THERAPIST ASSISTANT Height 172.7 cm (5' 8) 05/11/2024 1:00 PM PHYSICAL THERAPIST ASSISTANT Body Mass Index 25.41 05/11/2024 1:00 PM PHYSICAL THERAPIST ASSISTANT Plan of Treatment Upcoming Encounters Date Type Department Care Team (Late st Contact Info) Description 03/17/2025 7:30 AM CDT Hospital Encounter [facility] GI Center [address] [place] [phone] Peter Gurrola MD [address] [address] 03/17/2025 7:30 AM CDT - 03/17/2025 8:[address] [facility] GI [facility] [address] [place] [phone] Peter Gurrola MD [address] [address] EGD Scheduled Procedures Name Priority Associated Diagnoses [...] 09/09/2021, 08/13/2020 Medical Devices Implanted Type Area Relay Shop Supervisor Device Identifier Shelf Expiration Date Model / Serial / Lot Vesolock [id number] Symmetry Vesolock Large Clip Internal - Sn/A - [id number] Implanted:Qty: 6 on 06/11/2021 by Manoj Darling IV, MD at [facility] Clip N/A: [employer] 03/15/2024 [id number] / N/A / [id number] Vesolock [id number] Symmetry Vesolock Large Clip Internal - Sn/A - [id number] Implanted:Qty: 3 on 06/11/2021 by Manoj Darling IV, MD at [facility] Clip N/A: [employer] 02/14/2024 [id number] / N/A / [id number] Procedures Procedure Name Priority Date/Time Associated Diagnosis [...] LAB BLOOD ORDERABLES Perri rice Result [facility] One [facility] Department [place] [address] * COLONOSCOPY (09/09/2021 11:21 AM CDT) Anatomical Region Laterality Modality Other Narrative Procedure Note Peter Gurrola MD - 09/09/2021 11:21 AM CDT [facility] ENDOSCOPY [facility] Patient Name: Shad Viera Procedure Date: 09/09/2021 11:21 AM Date of : 1960 Admit Type: Outpatient Age: 61 Gender: Male Attending MD: Peter Gurrola M.D. Room: [facility] ENDOSCOPY ROOM 8 Note Status: Finalized Procedure: [...] was passed under direct vision.The PCF [id number] endoscope was introduced through the anus and advanced to the terminal ileum. The quality of the bowel preparation was evaluatedusing the BBPS ([place] Bowel Preparation Scale) withscores of: Right Colon [...] there are any questions, please contact the tile mechanic helper. Electronically signed by Peter Gurrola MD Peter Gurrola M.D. 09/09/2021 12:07:13 PM . Number of Addenda: 0 Note Initiated On: 09/09/2021 11:21 AM Recognized by the [place] [employer] for promoting quality in endoscopy Peter Gurrola MD ENDOSCOPY PROCEDURES Final Resu lt from Last 3 Months or Most Recently Relevant to Health Maintenance Insurance [facility] MEDICARE [facility] Address: [facility] [address] [place] [address] MEDICARE [facility] CHOICE PLUS [facility] HMO/PPO Address: [facility] [address] [place] [address] [facility] MDCR HMO REF [facility] MEDICARE ADVANTAGE Advance Directives For more information, please contact: [phone] * Full Code (Latest Code Status on File) Date Activated Date Inactivated Comments 09/09/2021 10:18 AM 09/09/2021 5:23 PM * Full Code Date Activated Date Inactivated Comments 06/11/2021 9:04 PM 06/12/2021 8:35 PM * Full Code Date Activated Date Inactivated Comments 08/13/2020 7:31 AM 08/13/2020 2:57 PM Care Teams Lumber Material Handler Relationship Specialty Start Date End Date Diane Castillo MD PCP - General 07/31/15
[2025-03-02] MEDS: KETOROLAC 30 MG/ML VIAL (*BKC) IV PUSH (11:03)
[2025-03-02] MEDS: ASPIRIN 81 MG CHEWABLE TABLET 324 MG PO (11:03)
[2025-03-02 11:15] LABS: Hematocrit 45.9 % (42.0-52.0); Hemoglobin 15.4 g/dL (14.0-18.0); Immature Granulocyte Percent A 0.6 % (0-0.5); Lymphocytes Absolute Auto 1.60 K/mm3 (0.9-3.2); Mean Corpuscular HGB Conc 33.6 g/dl (32-36); Mean Corpuscular Hemoglobin 32.2 pg (26-34); Mean Corpuscular Volume 96.0 fl (80-100); Nucleated Red Blood Cells Absolute Auto 0.000 K/mm3 (0.0-0.012); Nucleated Red Blood Cells Perc 0.0 % (0.0-0.2); Platelet Count Result 342 k/mm3 (150-375); Red Blood Count 4.78 M/mm3 (4.6-6.20); White Blood Count 8.7 K/mm3 (4.5-10.0)
[2025-03-02 11:25] LABS: Alanine Aminotransferase 16 U/L (6-50); Albumin Level 4.5 g/dL (3.5-5.1); Alkaline Phosphatase 97 U/L (38-126); Anion Gap 4 mmol/L (4-12); Aspartate Amino Transferase 24 U/L (17-59); Bilirubin,Total 0.7 mg/dL (0.2-1.3); Blood Urea Nitrogen 17 mg/dL (9-20); Calcium 9.5 mg/dL (8.4-10.2); Carbon Dioxide 28 mmol/L (22-30); Chloride 106 mmol/L (98-107); Estimated CRCL calculation 56 ml/min; Estimated Glomerular Filt Rate > 60; Glucose 94 mg/dL (65-110); INR 1.0; Lipase 62 U/L (23-300); Potassium 3.7 mmol/L (3.4-5.0); Prothrombin Time 13.6 Seconds (11.1-14.7); Sodium 138 mmol/L (137-145); Total Protein 7.4 g/dL (6.3-8.2)
[2025-03-02 11:27] LABS: Partial Thromboplastin Time 28.4 Seconds (22.3-36.8)
[2025-03-02 11:36] LABS: Troponin I < 0.012 ng/mL (0.000-0.034)
[2025-03-02 12:49] VITALS: BP 111/68; PULSE 69; PULSE 74; RESP 17; O2SAT 100
--- NOTE | 2025-03-02 13:27 | ECG_ITS ---
Test Date: 2025-03-02 13:28:59 Measurements Intervals [place] Rate: 55 P: 60 [place]: 172 QRS: 16 QRSD: 106 T: 62 QT: 418 QTc: 402 Interpretive Statements SINUS BRADYCARDIA INCOMPLETE RIGHT BUNDLE-BRANCH BLOCK ABNORMAL ECG Electronically Signed On 03-02-2025 17:55:56 CDT by Doyle Gerber M.D.
[2025-03-02 14:04] LABS: Troponin I < 0.012 ng/mL (0.000-0.034)
[2025-03-02 14:20] VITALS: BP 109/69; PULSE 61; RESP 12; O2SAT 100
== END 2025-03-02 14:21 | disposition home or self-care (01) ==
PROVIDERS: Emergency Provider Emergency Medicine; PCP Family Medicine
DX: R07.89 Other chest pain (principal); M54.12 Radiculopathy, cervical region; J43.2 Centrilobular emphysema; I73.9 Peripheral vascular disease, unspecified; E78.5 Hyperlipidemia, unspecified; E53.9 Vitamin B deficiency, unspecified; E55.9 Vitamin D deficiency, unspecified; G10 Huntington's disease; G47.30 Sleep apnea, unspecified; Z90.49 Acquired absence of other specified parts of digestive tract; F17.210 Nicotine dependence, cigarettes, uncomplicated; Z79.899 Other long term (current) drug therapy; I45.10 Unspecified right bundle-branch block; R00.1 Bradycardia, unspecified
CPT/HCPCS: 36415; 71046; 80053; 83690; 84484; 85025; 85380; 85610; 85730; 93005; 96374; 99284; A9270; J1885

== ENCOUNTER 2025-03-06 10:32 | Outpatient (CLI) | payer MEDICARE, SELFPAY ==
--- NOTE | ~2025-03-06 | XR_ITS ---
EXAMINATION: XR elbow LT 2V, 03/06/2025 10:54 CDT HISTORY: LT SHOOTING ELBOW PAIN THAT CAUSES A TWITCH x3 WKS COMPARISON: No comparisons available. Findings: No acute fracture or malalignment. No significant degenerative changes. Soft tissues unremarkable. Impression: No acute fracture or malalignment. Reviewed, dictated and finalized at location A. Impression: No acute fracture or malalignment.
--- NOTE | ~2025-03-06 | XR_ITS ---
EXAMINATION: XR shoulder LT min 2V, 03/06/2025 10:54 CDT HISTORY: LT SHOOTING SHOULDER ARM PAIN x3 WKS COMPARISON: No comparisons available. Findings: No acute fracture or malalignment. No significant degenerative changes. Soft tissues unremarkable. Impression: No acute fracture or malalignment. Reviewed, dictated and finalized at location A. Impression: No acute fracture or malalignment.
--- OUTSIDE RECORDS SUMMARY | 2025-03-06 11:40 | XMS_ITS | Clinical Summary ---
Author Organization [facility] Address [address] [address] Care Team Providers Care Student Services Director Name Role Phone Unavailable Primary Care Provider Unavailabl e Source Comments [facility],non-owned Affiliates and Associated Physician Practices is amultiple site organization consisting of ambulatory clinics and hospital sitesin [place], [place], [place] and [place]. This disclosure is being madepursuant to the Care Everywhere program and may not contain all information available regarding this patient. 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 Gender Identity Not on file Sexual Orientation Not on file Last Filed Vital Signs Vital Sign Reading Time Taken Comments Blood Pressure 111/74 05/03/2014 9:54 AM HOTEL DINING ROOM CASHIER Pulse 79 05/03/2014 9:54 AM HOTEL DINING ROOM CASHIER Temperature - - Respiratory Rate 16 05/03/2014 9:54 AM HOTEL DINING ROOM CASHIER Oxygen Saturation - - Inhaled Oxygen Concentration - - Weight 70.8 kg (156 lb) 05/03/2014 9:54 AM HOTEL DINING ROOM CASHIER Height 172.7 cm (5' 8) 05/03/2014 9:54 AM HOTEL DINING ROOM CASHIER Body Mass Index 23.72 05/03/2014 9:54 AM HOTEL DINING ROOM CASHIER Plan of Treatment Health Maintenance Due Date [...] age to complete this topic Insurance MEDICARE [facility]
--- OUTSIDE RECORDS SUMMARY | 2025-03-06 11:41 | XMS_ITS | Patient Health Record ---
Author Organization [facility] Address [address] [place] [address] Support Name Relationship Address Phone Maximiliano Shad Guarantor Unknown [phone] Reason For Referral No Information Plan Of Treatment No Information Insurance Providers Payer Name Payer Address Payer Phone Subscriber Number Group Number Insured Name Patient Relationship to Insured Coverage Start Date Coverage End Date [place] [address] [place], [place] [id number] Shad Viera Self - patient is the insured [facility] [address] [place], [place] [id number] Penny Viera Self - patient is the insured [place] Medicare [address] [address] [place], [place] [id number] Viera Shad Self - patient is the insured Medical (General) History Surgical History Surgery Date(Month/Year) Cholecystectomy:2004 Appendectomy Ercp duct stent placement ([id number]):ERCP 12/10/[address] 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 Morphologic changes of the pancreatic duct of unclear clinical significance. Dual-duct protective stenting was perfo 12/10/2014 Ercp duct stent placement ([id number]) 2014 Egd/endoscopy:Ahmed Gastritis. Path-- duodenal bx neg. Mild reactive gastropathy, neg for H. pylori. 03/05/2017
--- OUTSIDE RECORDS SUMMARY | 2025-03-06 11:41 | XMS_ITS | Clinical Summary ---
Author Organization [facility] Address [address] [place] [address] Care Team Providers Care Continuous Improvement Consultant Name Role Phone Diane Castillo MD Primary Care Provider [phone] Social History Tobacco Use Types Packs/Day Years [...] age to complete this topic Care Teams Continuous Improvement Consultant Relationship Specialty Start Date End Date Diane Castillo MD PCP - General 06/20/13
--- OUTSIDE RECORDS SUMMARY | 2025-03-06 11:41 | XMS_ITS | Encounter Summary ---
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 Gender Identity Not on file Sexual Orientation Straight 07/17/2020 10 :10 AM CERTIFIED LACTATION COUNSELOR documented as of this encounter Plan of Treatment Not on file documented as of this encounter Procedures Procedure Name Priority Date/Time Associated Diagnosis Comments GI - RESULT 03/06/2016 documented in this encounter Results * GI - RESULT (03/06/2016) Anatomical Region Laterality Modality Other us Provider Scanning Final Result documented in this encounter Visit Diagnoses Not on filedocumented in this encounter Care Teams Sap Consultant Relationship Specialty Start Date End Date Diane Castillo MD PCP - General 07/31/15 documented as of this encounter
--- OUTSIDE RECORDS SUMMARY | 2025-03-06 11:41 | XMS_ITS | Encounter Summary ---
Author Organization [facility] Address [address] [place] [address] Phone Care Team Providers Care Volunteer Specialist Name Role Phone Diane Castillo MD Primary Care Provider [phone] Encounter Details Date Type Department Care Team (Late st Contact Info) Description 03/06/2025 Telephone [facility] Medicine Gastroenterology [address] [place] [address] [place] [address] Antonia Zaidi LPN Social History Tobacco Use Types Packs/Day Years Used Date Smoking Tobacco: Every Day Cigarettes 0.7 47.7 Started: 1975 Smokeless Tobacco: Never Alcohol [...] on file 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 Spoke w Shad who states he will call at a later time - he has some kind of heart blockageand will need to wear a hear monitor. Procedures cx and reminder set to f/u documented in this encounter Plan of Treatment Not on file documented as of this encounter Visit Diagnoses Not on filedocumented in this encounter Care Teams Volunteer Specialist Relationship Specialty Start Date End Date Diane Castillo MD PCP - General 07/31/15 documented as of this encounter
--- OUTSIDE RECORDS SUMMARY | 2025-03-06 11:41 | XMS_ITS | Clinical Summary ---
Author Organization [facility] Address [address] [place] [address] Care Team Providers Care Yarn Sorter Name Role Phone Diane Castillo MD Primary Care Provider [phone] Allergies Active Allergy Reactions Criticality Noted Date [...] by inhalation Post-Proc q 6 hours. Active jzybtb-ymvobjkm-z roxana Rivero) 36,000-114,000-18 0,000 unit capsule take [...] Screening 09/10/2031 Medical Devices Implanted Type Area Meat Cooler Device Identifier Shelf Expiration Date Model / Serial / Lot Implant System, Jesusosite Velma Implanted:Qty: 1 on 03/16/2020 by Dl Samayoa MD at [facility] Right: Shoulder [employer] 08/12/2021 [id number] / / [id number] Insurance [facility] [place] [id number] RX EXPRESS SCRIPTS Express RX EXPRESS SCRIPTS Express RX [employer] PLANS (INTERNAL) [facility] Internal Plans [employer] Advance Directives For more information, please contact: [phone] * Full Code (Latest Code Status on File) Date Activated Date Inactivated Comments 02/22/2021 6:50 AM 02/22/2021 12:20 PM * Full Code Date Activated Date Inactivated Comments 03/16/2020 12:37 PM 03/16/2020 9:51 PM Care Teams Yarn Sorter Relationship Specialty Start Date End Date Diane Castillo MD [address] [place] [phone] PCP - General Family Practice 12/19/19
--- OUTSIDE RECORDS SUMMARY | 2025-03-06 11:41 | XMS_ITS | Clinical Summary ---
Author Organization [facility] Address [address] [place] [address] Care Team Providers Care Research Professional Name Role Phone Diane Castillo MD Primary Care Provider [phone] Allergies Active Allergy Reactions Criticality Noted Date [...] (two) weeks No particular day Active rizatriptan DIRECTOR PROCESS (MAXALT-DIRECTOR PROCESS) 10 mg disintegrating tabletIndications: Migraine Take 1 [...] (07/22/2021): Added automatically from request for surgery [id number] Gastric ulcer 07/22/2021 Overview (07/22/2021): Added automatically from request for surgery [id number] Prostate cancer 05/14/2021 Overview (05/14/2021): Added automatically from request for surgery [id number] Elevated PSA 04/08/2021 Overview (04/08/2021): Added automatically from request for surgery [id number] Lower urinary tract symptoms (LUTS) 09/11/2020 Kidney [...] you are waking up. This encounter's total wyxg-xj-hsob time was greater than 30 minutes. I [...] excluded. I am now more concerned about Lincoln's disease than I was in the past. He is agreeable to testing. I will ask the HD clinic's social insurance administrator to reach to arrange this test. - [...] which took place via Real-time video connection ([employer] Te[employer]uch, Zoom or similar). During the visit, I was located in the office and the patient was located at home in the [facility] [place]. The patient visit started at 1635 and [...] HADS. Mild evidence of daytime drowsiness on [place] scale. No evidence of REM Behavior Disorder [...] (07/24/2020): Added automatically from request for surgery [id number] Encounters Date Type Department Care Team Description 03/06/2025 Telephone [facility] Gastroenterology [address] [place] [address] [place] [phone] Antonia Zaidi LPN 02/08/2025 12:40 PM CDT Office Visit [facility] - [facility] Medicine Urology [address] [place] [address] [place] [phone] Manoj Darling IV, MD Malignant neoplasm of prostate (HCC) (Primary Dx) 01/12/2025 Telephone [facility] Gastroenterology [address] [place] [address] [place] [phone] Diane Andrade Follow-up; GI-procedure scheduling from Last [...] on file 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 Gender Identity Not on file Sexual Orientation Straight 07/17/2020 10 :10 AM 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 Start Date Job End Date [employer]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) Not on file Not on file Not on file Obstetrics History Last Filed Vital Signs Vital Sign Reading Time Taken Comments Blood Pressure 107/69 05/11/2024 1:00 PM CAMPAIGN WORKER Pulse 84 05/11/2024 1:00 PM CAMPAIGN WORKER Temperature 36.6 C (97.9 F) 05/11/2024 1:00 PM CAMPAIGN WORKER Respiratory Rate 18 05/31/2023 12:05 PM CAMPAIGN WORKER Oxygen Saturation 97% 05/11/2024 1:00 PM CAMPAIGN WORKER Inhaled Oxygen Concentration - - Weight 75.8 kg (167 lb 1.6 oz) 05/11/2024 1:00 P M CAMPAIGN WORKER Height 172.7 cm (5' 8) 05/11/2024 1:00 PM CAMPAIGN WORKER Body Mass Index 25.41 05/11/2024 1:00 PM CAMPAIGN WORKER Plan of Treatment Health Maintenance Due Date [...] 09/09/2021, 08/13/2020 Medical Devices Implanted Type Area Retort Fireman Device Identifier Shelf Expiration Date Model / Serial / Lot Vesolock [id number] Symmetry Vesolock Large Clip Internal - Sn/A - [id number] Implanted:Qty: 6 on 06/11/2021 by Manoj Darling IV, MD at [facility] Clip N/A: Pelvis [employer] 03/15/2024 [id number] / N/A / [id number] Vesolock [id number] Symmetry Vesolock Large Clip Internal - Sn/A - [id number] Implanted:Qty: 3 on 06/11/2021 by Manoj Darling IV, MD at [facility] Clip N/A: [employer] 02/14/2024 [id number] / N/A / [id number] Procedures Procedure Name Priority Date/Time Associated Diagnosis [...] 0 AM CDT 03/25/2024 11:54 AM CDT Manoj Darling IV, MD LAB BLOOD ORDERABLES Perri rice Result [facility] Department of Laboratories [place], [place] [id number] * COLONOSCOPY (09/09/2021 11:21 AM CDT) Anatomical Region Laterality Modality Other Narrative Procedure Note Peter Gurrola MD - 09/09/2021 11:21 AM CDT GI ENDOSCOPY [facility] Patient Name: Shad Viera Procedure Date: 09/09/2021 11:21 AM Date of : 1960 Admit Type: Outpatient Age: 61 Gender: Male Attending MD: Peter Gurrola M.D. Room: [facility] ENDOSCOPY ROOM 8 Note Status: Finalized Procedure: [...] The scope was passed under direct vision.The PC [id number] endoscope was introduced through the anus and advanced to the terminal ileum. The quality of the bowel preparation was evaluatedusing the BBPS ([place] Bowel Preparation Scale) withscores of: Right Colon [...] there are any questions, please contact the valve lapper. Electronically signed by Peter Gurrola MD Peter Gurrola M.D. 09/09/2021 12:07:13 PM . Number of Addenda: 0 Note Initiated On: 09/09/2021 11:21 AM Recognized by the [place] [employer] Gastrointestinal Endoscopy for promoting quality in endoscopy Peter Gurrola MD ENDOSCOPY PROCEDURES Final Resu lt from Last 3 Months or Most Recently Relevant to Health Maintenance Insurance [facility] MEDICARE ADVANTAGE MEDICARE [facility] CHOICE PLUS [facility] HMO/PPO Address: [address] [address] [place] [address] [facility] MDCR HMO REF [facility] MEDICARE ADVANTAGE Advance Directives For more information, please contact: [phone] * Full Code (Latest Code Status on File) Date Activated Date Inactivated Comments 09/09/2021 10:18 AM 09/09/2021 5:23 PM * Full Code Date Activated Date Inactivated Comments 06/11/2021 9:04 PM 06/12/2021 8:35 PM * Full Code Date Activated Date Inactivated Comments 08/13/2020 7:31 AM 08/13/2020 2:57 PM Care Teams Research Professional Relationship Specialty Start Date End Date Diane Castillo MD PCP - General 07/31/15
--- OUTSIDE RECORDS SUMMARY | 2025-03-06 11:41 | XMS_ITS ---
Author Organization [facility] Address [address] [place] [address] Care Team Providers Care Manager Gallery Name Role Phone Diane Castillo MD Primary Care Provider Active Problems Problem Noted Date Diagnosed Date Tubular adenoma 09/08/2024 Generalized postprandial abdominal pain 07/22/19 22 Overview (07/22/2021): Added automatically from request for surgery [id number] Gastric ulcer 07/22/2021 Overview (07/22/2021): Added automatically from request for surgery [id number] Prostate cancer 05/14/2021 Overview (05/14/2021): Added automatically from request for surgery [id number] Elevated PSA 04/08/2021 Overview (04/08/2021): Added automatically from request for surgery [id number] Lower urinary tract symptoms (LUTS) 09/11/2020 Kidney [...] you are waking up. This encounter's total cmfu-cv-rcxd time was greater than 30 minutes. I [...] excluded. I am now more concerned about Wright's disease than I was in the past. He is agreeable to testing. I will ask the HD clinic's social media coordinator to reach to arrange this test. - [...] to you for possible genetic testing for Wright's disease, as we discussed. - Contact my office 4 weeks after you have started tetrabenazine for an update. This was a telemedicine visit with Shad Viera alone which took place via Real-time video connection ([employer], Zoom or similar). During the visit, I was located in the office and the patient was located at home in the state [facility]. The patient visit started at 1635 [...] HADS. Mild evidence of daytime drowsiness on Machias scale. No evidence of REM Behavior Disorder [...] (07/24/2020): Added automatically from request for surgery [id number]
== END 2025-03-06 10:33 | disposition home or self-care (01) ==
PROVIDERS: PCP Family Medicine; Visit Provider Student in an Organized Health Care Education/Training Program
DX: M79.602 Pain in left arm (principal)
CPT/HCPCS: 73030; 73070